=== PATIENT | female | born 1960 | race Caucasian/White ===

== ENCOUNTER 2018-02-25 16:42 | Inpatient (IN) ==
[2018-02-25] MEDS ORDERED: NITROGLYCERIN 2% OINT 1 INCH/GM PACK TOP STA (17:10)
[2018-02-25] MEDS ORDERED: MORPHINE 4 MG/1 ML VIAL IV STA (17:10)
[2018-02-25 17:30] LABS: Basophils % 0.3 % (0.0-0.8); Eosinophils # 0.2 10*3/uL (0.0-0.87); Eosinophils % 1.5 % (0.00-10.9); Hematocrit 39.5 VOL% (35.7-47.0); Hemoglobin 13.1 GM/DL (12.0-16.0); Immature Granulocytes % 0.4 %; Immature Granulocytes Absolute 0.05 #; Lymphocytes # 2.5 10*3/uL (1.4-4.0); Lymphocytes % 21.5 % (21.3-54.2); Mean Corpuscular HGB Conc 33.2 GM/DL (32-36); Mean Corpuscular Hemoglobin 32 PG (27-34); Mean Corpuscular Volume 95.6 FL (87-102); Mean Platelet Volume 11.4 FL (9.6-12.0); Monocytes # 0.8 10*3/uL (0.11-0.8); Monocytes % 6.6 % (1.7-12.7); Neutrophils % 69.7 % (38.7-73.9); Platelet Count 235 T/CUMM (130-400); Red Blood Count 4.13 MC/CUMM (3.8-5.5); White Blood Count 11.5 T/CUMM (4-12)
[2018-02-25 17:46] LABS: INR 0.9; Partial Thromboplastin Time 28.7 SECS (0-40)
[2018-02-25 17:49] LABS: Lactic Acid 2.8 MMOL/L (0.4-2.0)
[2018-02-25 17:50] LABS: Albumin 2.8 G/DL (3.4-5.0); Bilirubin,Total 0.6 MG/DL (0.2-1.0); Potassium 3.8 MMOL/L (3.5-5.1); Total Protein 7.5 G/DL (6.4-8.3)
[2018-02-25 17:52] LABS: Troponin I Only < 0.015 NG/ML (0.00-0.045)
[2018-02-25] MEDS ORDERED: LORazepam 2 MG/1 ML VIAL ONE (19:01)
[2018-02-25] MEDS ORDERED: ALBUTEROL 2.5 MG/3 ML NEB RESP TX PRN (19:02)
[2018-02-25] MEDS ORDERED: ZALEPLON 5 MG CAPSULE PO PRN (19:02)
[2018-02-25] MEDS ORDERED: ONDANSETRON 4 MG/2 ML VIAL IV PRN (19:02)
[2018-02-25] MEDS ORDERED: hydrALAZINE 20 MG/1 ML VIAL IV PRN (19:10)
[2018-02-25] MEDS ORDERED: methylPREDNISolone SOD SUC 125 MG/2 ML VIAL ONE (19:13)
[2018-02-25] MEDS ORDERED: POTASSIUM CHLORIDE RIDER 10 MEQ in PREMIX 1 EACH IV PRN (19:15)
[2018-02-25] MEDS ORDERED: diphenhydrAMINE 50 MG/1 ML VIAL IV STA (19:15)
[2018-02-25] MEDS ORDERED: MAGNESIUM SULF RIDER 2 GM in PREMIX 1 EACH IV PRN (19:15)
[2018-02-25] MEDS ORDERED: methylPREDNISolone SOD SUC 125 MG/2 ML VIAL IV STA (19:15)
[2018-02-25] MEDS ORDERED: ETOMIDATE 20 MG/10 ML VIAL IV ONE ×2 (19:17→19:19)
[2018-02-25] MEDS ORDERED: ROCURONIUM 100 MG/10 ML VIAL IV ONE (19:18)
[2018-02-25] MEDS ORDERED: SODIUM CHLORIDE 0.45% 1,000 ML IV SCH (19:30)
[2018-02-25] MEDS ORDERED: EPINEPHrine 1 MG/10 ML SYRINGE ONE (19:35)
[2018-02-25] MEDS ORDERED: ATROPINE 1 MG/10 ML SYRINGE ONE (19:35)
[2018-02-25] MEDS ORDERED: MIDAZOLAM 2 MG/2 ML VIAL ONE (19:46)
[2018-02-25] MEDS ORDERED: fentaNYL 100 MCG/2 ML VIAL ONE (19:47)
[2018-02-25] MEDS ORDERED: diphenhydrAMINE 50 MG/1 ML VIAL ONE (19:49)
[2018-02-25] MEDS ORDERED: HEPARIN/NACL 0.9% 2 UNITS/ML 0 ML IV ONE (19:57)
[2018-02-25 20:04] LABS: ABG Base Excess -3.9 MMOL/L (-2.5-2.5); ABG Oxygen Saturation 84.5 % (95-100); ABG PCO2 49.1 MM HG (35-48); ABG PH 7.289 (7.35-7.45); ABG PO2 60.3 MM HG (80-95); ABG TCO2 24.5 MMOL/L (23-27); Glucose Heart Surgery 318 MG/DL (74-106); Hemoglobin Heart Surgery 13.3 G/DL (12.0-16.0); Potassium Heart/CVR 3.7 MMOL/L (3.5-5.1)
[2018-02-25] MEDS: PROPOFOL 1,000 MG/100 ML BOTTLE IV SCH (21:08)
[2018-02-25] MEDS ORDERED: PROPOFOL 1,000 MG/100 ML BOTTLE IV ONE (21:08)
[2018-02-25] MEDS ORDERED: FUROSEMIDE 40 MG/4 ML VIAL IV ONE (21:14)
[2018-02-25] MEDS ORDERED: MAGNESIUM GLUCONATE 200 MG/ML 30 ML/BOTTLE PO ONE (21:30)
[2018-02-25] MEDS ORDERED: PANTOPRAZOLE INJ 80 MG in SODIUM CHLORIDE 0.9% 100 ML IV ONE (22:00)
[2018-02-25 22:02] LABS: Lactic Acid 3.1 MMOL/L (0.4-2.0)
[2018-02-25 22:19] LABS: ABG Base Excess 0.6 MMOL/L (-2.5-2.5); ABG HCO3 26.1 MMOL/L (20-26); ABG Oxygen Saturation 96.6 % (95-100); ABG PCO2 45.5 MM HG (35-48); ABG PH 7.377 (7.35-7.45); ABG PO2 101.3 MM HG (80-95); ABG TCO2 27.5 MMOL/L (23-27)
[2018-02-25] MEDS: diphenhydrAMINE 50 MG/1 ML VIAL IV SCH (22:31)
[2018-02-25] MEDS: DOCUSATE SODIUM 100 MG CAPSULE PO SCH (22:31)
[2018-02-25] MEDS: APIXABAN 5 MG TABLET PO SCH (22:31)
[2018-02-25] MEDS: diphenhydrAMINE CAP 25 MG CAPSULE PO SCH (22:31)
[2018-02-25] MEDS: POTASSIUM CHLORIDE 20 MEQ/15 ML UDCUP PO SCH (22:32)
[2018-02-25] MEDS: GABAPENTIN 300 MG CAPSULE PO SCH (22:32)
[2018-02-25] MEDS: METOPROLOL TARTRATE 25 MG TABLET PO SCH (22:32)
[2018-02-25] MEDS: POLYCARBOPHIL 625 MG TABLET PO SCH (22:32)
[2018-02-25] MEDS: methylPREDNISolone SOD SUC 125 MG/2 ML VIAL IV SCH (22:34)
[2018-02-25 22:40] LABS: Apearance,Urine CLEAR (Clear); Bilirubin,Urine Negative (Negative); Blood, Urine Small mg/dL (Negative); Glucose,Urine (UA) 150 mg/dL (Negative); Ketones,Urine Negative (Negative); Nitrite,Urine Negative (Negative); Protein,Urine 100 MG/DL; RBC,Urine 12 /HPF (0-4); Urine Color Yellow (Yellow); Urine Specific Gravity > 1.060 (1.001-1.035); Urine Urobilinogen < 2.0 EU/DL (0.2-1.0); WBC,Urine 2 /HPF (0-6)
[2018-02-26 02:15] LABS: Lactic Acid 2.1 MMOL/L (0.4-2.0)
[2018-02-26] MEDS: PROPOFOL 1,000 MG/100 ML BOTTLE IV SCH ×5 (02:48→19:41)
[2018-02-26 03:15] LABS: ABG Base Excess 1.8 MMOL/L (-2.5-2.5); ABG HCO3 27.5 MMOL/L (20-26); ABG PCO2 48.3 MM HG (35-48); ABG PH 7.374 (7.35-7.45); ABG PO2 183.6 MM HG (80-95)
[2018-02-26 03:16] LABS: Basophils % 0.2 % (0.0-0.8); Hematocrit 33.7 VOL% (35.7-47.0); Hemoglobin 11.1 GM/DL (12.0-16.0); Immature Granulocytes % 0.8 %; Immature Granulocytes Absolute 0.09 #; Lymphocytes # 0.5 10*3/uL (1.4-4.0); Lymphocytes % 4.2 % (21.3-54.2); Mean Corpuscular HGB Conc 32.9 GM/DL (32-36); Mean Corpuscular Hemoglobin 32 PG (27-34); Mean Corpuscular Volume 96.8 FL (87-102); Mean Platelet Volume 11.6 FL (9.6-12.0); Monocytes # 0.3 10*3/uL (0.11-0.8); Monocytes % 2.1 % (1.7-12.7); Neutrophils # 11.1 10*3/uL (1.4-7.4); Neutrophils % 92.7 % (38.7-73.9); Platelet Count 186 T/CUMM (130-400); Red Blood Count 3.48 MC/CUMM (3.8-5.5)
[2018-02-26 03:35] LABS: Band Neutrophils 24 % (0-10); Lymphocytes 2 % (20-55); Segmented Neutrophils 74 % (50-85); Total Cells Counted 100
[2018-02-26 03:49] LABS: Osmolality,Calculated 285.8 MOS/KG (273-304); Potassium 4.6 MMOL/L (3.5-5.1)
[2018-02-26] MEDS: methylPREDNISolone SOD SUC 125 MG/2 ML VIAL IV SCH ×3 (04:03→15:21)
[2018-02-26 06:12] LABS: Lactic Acid 2.3 MMOL/L (0.4-2.0)
[2018-02-26] MEDS: diphenhydrAMINE 50 MG/1 ML VIAL IV SCH ×4 (06:20→18:08)
[2018-02-26] MEDS: LEVOTHYROXINE 175 MCG TABLET PO SCH (06:20)
[2018-02-26 08:45] LABS: ABG Base Excess 1.1 MMOL/L (-2.5-2.5); ABG HCO3 25.4 MMOL/L (20-26); ABG Oxygen Saturation 96.7 % (95-100); ABG PCO2 46.8 MM HG (35-48); ABG PH 7.367 (7.35-7.45); ABG PO2 92.2 MM HG (80-95); ABG TCO2 24.4 MMOL/L (23-27)
[2018-02-26] MEDS ORDERED: METOPROLOL SUCCINATE XL 50 MG TABLET PO SCH (09:00)
[2018-02-26] MEDS: POTASSIUM CHLORIDE 20 MEQ/15 ML UDCUP PO SCH ×2 (10:12→23:25)
[2018-02-26] MEDS: FUROSEMIDE 40 MG/4 ML VIAL IV SCH ×2 (10:12→15:21)
[2018-02-26] MEDS: METOPROLOL TARTRATE 25 MG TABLET PO SCH ×2 (10:12→23:25)
[2018-02-26] MEDS: APIXABAN 5 MG TABLET PO SCH ×2 (10:13→23:24)
[2018-02-26] MEDS: amLODIPine 10 MG TABLET PO SCH (10:13)
[2018-02-26] MEDS: LANSOPRAZOLE ODT 30 MG TABLET PER TUBE SCH (10:13)
[2018-02-26] MEDS: FLUoxetine 20 MG CAPSULE PO SCH (10:13)
[2018-02-26] MEDS: PRAVASTATIN 40 MG TABLET PO SCH (10:13)
[2018-02-26] MEDS: GABAPENTIN 300 MG CAPSULE PO SCH ×3 (10:13→23:25)
[2018-02-26] MEDS: POLYCARBOPHIL 625 MG TABLET PO SCH ×3 (10:13→23:25)
[2018-02-26] MEDS: DOCUSATE SODIUM 100 MG CAPSULE PO SCH (10:15)
[2018-02-26] MEDS: OMEGA 3 ACID ETHYL ESTERS 1 GM CAPSULE PO SCH (10:15)
[2018-02-26] MEDS ORDERED: MAGNESIUM SULF RIDER 4 GM in PREMIX 1 EACH IV PRN (11:51)
[2018-02-26 13:07] LABS: Calcium 8.2 MG/DL (8.5-10.1); Potassium 4.1 MMOL/L (3.5-5.1)
[2018-02-26] MEDS ORDERED: FLUoxetine 20 MG CAPSULE PO SCH (21:00)
[2018-02-26] MEDS: LISINOPRIL 20 MG TABLET PO SCH (23:24)
[2018-02-26] MEDS: diphenhydrAMINE CAP 25 MG CAPSULE PO SCH (23:25)
[2018-02-27] MEDS: PROPOFOL 1,000 MG/100 ML BOTTLE IV SCH ×4 (00:32→23:51)
[2018-02-27] MEDS: DOCUSATE SODIUM 100 MG CAPSULE PO SCH ×3 (05:13→20:30)
[2018-02-27 05:47] LABS: ABG Base Excess 4.8 MMOL/L (-2.5-2.5); ABG HCO3 28.8 MMOL/L (20-26); ABG Oxygen Saturation 99.3 % (95-100); ABG PCO2 46.9 MM HG (35-48); ABG PH 7.416 (7.35-7.45); ABG TCO2 27.1 MMOL/L (23-27)
[2018-02-27 05:50] LABS: Basophils % 0.1 % (0.0-0.8); Hematocrit 31.8 VOL% (35.7-47.0); Hemoglobin 10.5 GM/DL (12.0-16.0); Immature Granulocytes % 1.3 %; Immature Granulocytes Absolute 0.17 #; Lymphocytes # 0.7 10*3/uL (1.4-4.0); Lymphocytes % 5.5 % (21.3-54.2); Mean Corpuscular Hemoglobin 32 PG (27-34); Mean Corpuscular Volume 95.8 FL (87-102); Mean Platelet Volume 11.7 FL (9.6-12.0); Monocytes # 0.5 10*3/uL (0.11-0.8); Monocytes % 4.2 % (1.7-12.7); Neutrophils # 11.2 10*3/uL (1.4-7.4); Neutrophils % 88.9 % (38.7-73.9); Platelet Count 178 T/CUMM (130-400); Red Blood Count 3.32 MC/CUMM (3.8-5.5); Red Cell Distribution Width 12.8 % (9.3-17.3); White Blood Count 12.6 T/CUMM (4-12)
[2018-02-27 05:52] LABS: Total Cells Counted 0
[2018-02-27] MEDS: LEVOTHYROXINE 175 MCG TABLET PO SCH (05:54)
[2018-02-27 06:04] LABS: Calcium 8.8 MG/DL (8.5-10.1); Osmolality,Calculated 288.7 MOS/KG (273-304); Potassium 3.9 MMOL/L (3.5-5.1)
[2018-02-27] MEDS ORDERED: ATROPINE 1 MG/10 ML SYRINGE ONE (06:38)
[2018-02-27] MEDS ORDERED: GLUCAGON 1 MG VIAL IM PRN (07:27)
[2018-02-27] MEDS ORDERED: DEXTROSE 50% 25 GM/50 ML VIAL IV PRN (07:27)
[2018-02-27] MEDS: GABAPENTIN 300 MG CAPSULE PO SCH ×3 (09:27→20:31)
[2018-02-27] MEDS: METOPROLOL TARTRATE 25 MG TABLET PO SCH ×2 (09:27→20:30)
[2018-02-27] MEDS: POLYCARBOPHIL 625 MG TABLET PO SCH ×3 (09:27→20:30)
[2018-02-27] MEDS: LANSOPRAZOLE ODT 30 MG TABLET PER TUBE SCH (09:27)
[2018-02-27] MEDS: amLODIPine 10 MG TABLET PO SCH (09:27)
[2018-02-27] MEDS: POTASSIUM CHLORIDE 20 MEQ/15 ML UDCUP PO SCH ×2 (09:27→20:31)
[2018-02-27] MEDS: MULTIVITAMIN (BEROCCA) TABLET PO SCH (09:27)
[2018-02-27] MEDS: OMEGA 3 ACID ETHYL ESTERS 1 GM CAPSULE PO SCH (09:27)
[2018-02-27] MEDS: PRAVASTATIN 40 MG TABLET PO SCH (09:27)
[2018-02-27] MEDS: FUROSEMIDE 40 MG/4 ML VIAL IV SCH ×2 (09:28→16:30)
[2018-02-27] MEDS: APIXABAN 5 MG TABLET PO SCH ×2 (09:28→20:30)
[2018-02-27] MEDS: FLUoxetine 20 MG CAPSULE PO SCH ×2 (09:28→20:31)
[2018-02-27] MEDS: INSULIN REGULAR 100 UNIT/ML SUBCUT SCH ×2 (13:16→17:35)
[2018-02-27] MEDS: diphenhydrAMINE CAP 25 MG CAPSULE PO SCH (20:30)
[2018-02-27] MEDS: LISINOPRIL 20 MG TABLET PO SCH (20:31)
[2018-02-28] MEDS: INSULIN REGULAR 100 UNIT/ML SUBCUT SCH ×4 (00:59→18:40)
[2018-02-28] MEDS: MORPHINE 4 MG/1 ML VIAL IV PRN ×3 (02:32→13:19)
[2018-02-28 04:28] LABS: ABG Base Excess 7.4 MMOL/L (-2.5-2.5); ABG HCO3 31.2 MMOL/L (20-26); ABG Oxygen Saturation 96.9 % (95-100); ABG PCO2 47.5 MM HG (35-48); ABG PH 7.446 (7.35-7.45); ABG PO2 88.6 MM HG (80-95); ABG TCO2 28.8 MMOL/L (23-27); Allen Test Positive; Pt O2 Delivery Device BIPAP
[2018-02-28 06:04] LABS: Basophils % 0.1 % (0.0-0.8); Eosinophils % 0.2 % (0.00-10.9); Hematocrit 34.7 VOL% (35.7-47.0); Hemoglobin 11.5 GM/DL (12.0-16.0); Immature Granulocytes % 1.3 %; Immature Granulocytes Absolute 0.15 #; Lymphocytes # 2.3 10*3/uL (1.4-4.0); Lymphocytes % 19.2 % (21.3-54.2); Mean Corpuscular HGB Conc 33.1 GM/DL (32-36); Mean Corpuscular Hemoglobin 32 PG (27-34); Mean Corpuscular Volume 97.5 FL (87-102); Mean Platelet Volume 12.1 FL (9.6-12.0); Monocytes # 0.7 10*3/uL (0.11-0.8); Monocytes % 6.2 % (1.7-12.7); Neutrophils # 8.7 10*3/uL (1.4-7.4); Platelet Count 195 T/CUMM (130-400); Red Blood Count 3.56 MC/CUMM (3.8-5.5)
[2018-02-28] MEDS: LEVOTHYROXINE 175 MCG TABLET PO SCH (06:07)
[2018-02-28] MEDS: FUROSEMIDE 40 MG/4 ML VIAL IV SCH (08:12)
[2018-02-28] MEDS: PROPOFOL 1,000 MG/100 ML BOTTLE IV SCH ×3 (08:58→23:10)
[2018-02-28] MEDS ORDERED: SUCCINYLCHOLINE 200 MG/10 ML VIAL ONE (09:08)
[2018-02-28] MEDS ORDERED: ETOMIDATE 40 MG/20 ML VIAL IV ONE (09:08)
[2018-02-28 09:29] LABS: ABG Base Excess 5.4 MMOL/L (-2.5-2.5); ABG HCO3 29.1 MMOL/L (20-26); ABG Oxygen Saturation 90.7 % (95-100); ABG PCO2 49.9 MM HG (35-48); ABG PH 7.405 (7.35-7.45); ABG PO2 64.4 MM HG (80-95); ABG TCO2 27.6 MMOL/L (23-27)
[2018-02-28] MEDS: PHENYLEPHRINE DRIP 40 MG/250 ML PREMIX IV PRN (09:46)
[2018-02-28 11:20] LABS: Calcium 8.7 MG/DL (8.5-10.1); Osmolality,Calculated 293.3 MOS/KG (273-304); Potassium 3.8 MMOL/L (3.5-5.1)
[2018-02-28] MEDS ORDERED: FUROSEMIDE INJ 100 MG in SODIUM CHLORIDE 0.9% 90 ML IV SCH (12:00)
[2018-02-28] MEDS: METOPROLOL TARTRATE 25 MG TABLET PO SCH ×2 (12:31→23:10)
[2018-02-28] MEDS: POTASSIUM CHLORIDE 20 MEQ/15 ML UDCUP PO SCH ×2 (12:48→21:04)
[2018-02-28] MEDS: GABAPENTIN 300 MG CAPSULE PO SCH ×3 (12:49→21:06)
[2018-02-28] MEDS: DOCUSATE SODIUM 100 MG/10 ML UDCUP PO SCH ×2 (12:49→21:06)
[2018-02-28] MEDS: OMEGA 3 ACID ETHYL ESTERS 1 GM CAPSULE PO SCH (12:49)
[2018-02-28] MEDS: MULTIVITAMIN (BEROCCA) TABLET PO SCH (12:49)
[2018-02-28] MEDS: FLUoxetine 20 MG CAPSULE PO SCH ×2 (12:50→21:04)
[2018-02-28] MEDS: PRAVASTATIN 40 MG TABLET PO SCH (12:50)
[2018-02-28] MEDS: LANSOPRAZOLE ODT 30 MG TABLET PER TUBE SCH (12:50)
[2018-02-28] MEDS: APIXABAN 5 MG TABLET PO SCH ×2 (12:50→21:05)
[2018-02-28] MEDS: methylPREDNISolone SOD SUC 40 MG/1 ML VIAL IV SCH ×2 (12:50→21:04)
[2018-02-28] MEDS: POLYCARBOPHIL 625 MG TABLET PO SCH ×3 (12:59→21:05)
[2018-02-28] MEDS ORDERED: SODIUM CHLORIDE 0.9% 500 ML IV ONE (15:11)
[2018-02-28] MEDS: amLODIPine 10 MG TABLET PO SCH (16:45)
[2018-02-28] MEDS: DOCUSATE SODIUM 100 MG CAPSULE PO SCH (16:45)
[2018-02-28] MEDS: SODIUM CHLORIDE 0.9% 1,000 ML IV SCH (20:19)
[2018-02-28] MEDS: diphenhydrAMINE CAP 25 MG CAPSULE PO SCH (21:06)
[2018-03-01] MEDS: PROPOFOL 1,000 MG/100 ML BOTTLE IV SCH ×4 (00:38→20:37)
[2018-03-01] MEDS: INSULIN REGULAR 100 UNIT/ML SUBCUT SCH ×4 (00:51→18:08)
[2018-03-01 03:44] LABS: ABG Base Excess 4.6 MMOL/L (-2.5-2.5); ABG HCO3 29.9 MMOL/L (20-26); ABG Oxygen Saturation 99.2 % (95-100); ABG PCO2 47.8 MM HG (35-48); ABG PH 7.414 (7.35-7.45); ABG PO2 260.9 MM HG (80-95); ABG TCO2 31.4 MMOL/L (23-27)
[2018-03-01 05:21] LABS: Calcium 8.1 MG/DL (8.5-10.1); Potassium 4.5 MMOL/L (3.5-5.1); Prealbumin 23.2 MG/DL (20-40)
[2018-03-01] MEDS: LEVOTHYROXINE 175 MCG TABLET PO SCH (06:17)
[2018-03-01 08:48] LABS: ABG Base Excess 3.7 MMOL/L (-2.5-2.5); ABG HCO3 27.7 MMOL/L (20-26); ABG Oxygen Saturation 95.8 % (95-100); ABG PCO2 46.9 MM HG (35-48); ABG PH 7.401 (7.35-7.45); ABG PO2 83.9 MM HG (80-95); ABG TCO2 26.4 MMOL/L (23-27)
[2018-03-01] MEDS: POTASSIUM CHLORIDE 20 MEQ/15 ML UDCUP PO SCH ×2 (09:33→20:58)
[2018-03-01] MEDS: PRAVASTATIN 40 MG TABLET PO SCH (09:34)
[2018-03-01] MEDS: POLYCARBOPHIL 625 MG TABLET PO SCH ×3 (09:34→20:39)
[2018-03-01] MEDS: MULTIVITAMIN (BEROCCA) TABLET PO SCH (09:34)
[2018-03-01] MEDS: APIXABAN 5 MG TABLET PO SCH ×2 (09:34→20:38)
[2018-03-01] MEDS: OMEGA 3 ACID ETHYL ESTERS 1 GM CAPSULE PO SCH (09:35)
[2018-03-01] MEDS: METOPROLOL TARTRATE 25 MG TABLET PO SCH ×2 (09:35→20:39)
[2018-03-01] MEDS: FLUoxetine 20 MG CAPSULE PO SCH ×2 (09:35→20:38)
[2018-03-01] MEDS: LANSOPRAZOLE ODT 30 MG TABLET PER TUBE SCH (09:35)
[2018-03-01] MEDS: DOCUSATE SODIUM 100 MG/10 ML UDCUP PO SCH ×2 (09:35→20:38)
[2018-03-01] MEDS: GABAPENTIN 300 MG CAPSULE PO SCH ×3 (09:37→20:39)
[2018-03-01] MEDS: SODIUM CHLORIDE 0.9% 1,000 ML IV SCH ×2 (09:40→22:37)
[2018-03-01] MEDS: methylPREDNISolone SOD SUC 40 MG/1 ML VIAL IV SCH ×2 (09:45→20:38)
[2018-03-01] MEDS: MORPHINE 4 MG/1 ML VIAL IV PRN (12:11)
[2018-03-01] MEDS: diphenhydrAMINE CAP 25 MG CAPSULE PO SCH (20:38)
[2018-03-02] MEDS: INSULIN REGULAR 100 UNIT/ML SUBCUT SCH ×5 (00:09→23:55)
[2018-03-02] MEDS: PROPOFOL 1,000 MG/100 ML BOTTLE IV SCH ×5 (01:56→23:29)
[2018-03-02 04:19] LABS: Basophils % 0.1 % (0.0-0.8); Hematocrit 30.9 VOL% (35.7-47.0); Hemoglobin 10.3 GM/DL (12.0-16.0); Immature Granulocytes % 1.6 %; Immature Granulocytes Absolute 0.19 #; Lymphocytes # 0.8 10*3/uL (1.4-4.0); Lymphocytes % 6.7 % (21.3-54.2); Mean Corpuscular HGB Conc 33.3 GM/DL (32-36); Mean Corpuscular Hemoglobin 32 PG (27-34); Mean Platelet Volume 12.6 FL (9.6-12.0); Monocytes # 0.6 10*3/uL (0.11-0.8); Monocytes % 5.2 % (1.7-12.7); Neutrophils % 86.4 % (38.7-73.9); Platelet Count 175 T/CUMM (130-400); Red Blood Count 3.22 MC/CUMM (3.8-5.5); Red Cell Distribution Width 12.7 % (9.3-17.3); White Blood Count 11.6 T/CUMM (4-12)
[2018-03-02] MEDS: LEVOTHYROXINE 175 MCG TABLET PO SCH (06:31)
[2018-03-02 08:17] LABS: Osmolality,Calculated 295.3 MOS/KG (273-304); Potassium 4.9 MMOL/L (3.5-5.1)
[2018-03-02 08:26] LABS: ABG Base Excess 3.4 MMOL/L (-2.5-2.5); ABG HCO3 27.3 MMOL/L (20-26); ABG Oxygen Saturation 92.1 % (95-100); ABG PCO2 43.8 MM HG (35-48); ABG PH 7.418 (7.35-7.45); ABG PO2 65.5 MM HG (80-95); ABG TCO2 25.6 MMOL/L (23-27)
[2018-03-02] MEDS: POLYETHYLENE GLYCOL POWDER 17 GM PACK PER TUBE SCH (09:49)
[2018-03-02] MEDS: DOCUSATE SODIUM 100 MG/10 ML UDCUP PO SCH ×2 (09:49→20:31)
[2018-03-02] MEDS: OMEGA 3 ACID ETHYL ESTERS 1 GM CAPSULE PO SCH (09:51)
[2018-03-02] MEDS: GABAPENTIN 300 MG CAPSULE PO SCH ×3 (09:52→20:32)
[2018-03-02] MEDS: LISINOPRIL 10 MG TABLET PO SCH (09:52)
[2018-03-02] MEDS: PRAVASTATIN 40 MG TABLET PO SCH (09:53)
[2018-03-02] MEDS: FLUoxetine 20 MG CAPSULE PO SCH ×2 (09:53→20:31)
[2018-03-02] MEDS: POLYCARBOPHIL 625 MG TABLET PO SCH ×3 (09:53→20:31)
[2018-03-02] MEDS: MULTIVITAMIN (BEROCCA) TABLET PO SCH (09:53)
[2018-03-02] MEDS: amLODIPine 5 MG TABLET PO SCH (09:53)
[2018-03-02] MEDS: POTASSIUM CHLORIDE 20 MEQ/15 ML UDCUP PO SCH ×2 (09:53→20:31)
[2018-03-02] MEDS: APIXABAN 5 MG TABLET PO SCH ×2 (09:53→20:32)
[2018-03-02] MEDS: LANSOPRAZOLE ODT 30 MG TABLET PER TUBE SCH (09:53)
[2018-03-02] MEDS: METOPROLOL TARTRATE 25 MG TABLET PO SCH ×2 (10:30→20:31)
[2018-03-02] MEDS ORDERED: METOPROLOL TARTRATE 5 MG/5 ML VIAL IV ONE ×3 (18:39→18:48)
[2018-03-02] MEDS: diphenhydrAMINE CAP 25 MG CAPSULE PO SCH (20:31)
[2018-03-03] MEDS: MORPHINE 4 MG/1 ML VIAL IV PRN (02:04)
[2018-03-03 03:47] LABS: Basophils % 0.2 % (0.0-0.8); Eosinophils # 0.1 10*3/uL (0.0-0.87); Eosinophils % 0.9 % (0.00-10.9); Hematocrit 29.5 VOL% (35.7-47.0); Immature Granulocytes % 2.1 %; Immature Granulocytes Absolute 0.22 #; Lymphocytes # 1.6 10*3/uL (1.4-4.0); Mean Corpuscular HGB Conc 33.9 GM/DL (32-36); Mean Corpuscular Hemoglobin 32 PG (27-34); Mean Corpuscular Volume 94.2 FL (87-102); Mean Platelet Volume 12.5 FL (9.6-12.0); Monocytes # 0.9 10*3/uL (0.11-0.8); Monocytes % 8.2 % (1.7-12.7); NRBC # 0.02 10*3/uL; Neutrophils # 7.8 10*3/uL (1.4-7.4); Neutrophils % 73.6 % (38.7-73.9); Platelet Count 187 T/CUMM (130-400); Red Blood Count 3.13 MC/CUMM (3.8-5.5); Red Cell Distribution Width 13.1 % (9.3-17.3); White Blood Count 10.7 T/CUMM (4-12)
[2018-03-03] MEDS: PROPOFOL 1,000 MG/100 ML BOTTLE IV SCH ×6 (04:12→21:36)
[2018-03-03 04:14] LABS: Osmolality,Calculated 284.5 MOS/KG (273-304); Potassium 4.3 MMOL/L (3.5-5.1)
[2018-03-03 04:23] LABS: ABG Base Excess 5.1 MMOL/L (-2.5-2.5); ABG Oxygen Saturation 97.4 % (95-100); ABG PCO2 45.1 MM HG (35-48); ABG PH 7.432 (7.35-7.45); ABG PO2 94.5 MM HG (80-95); ABG TCO2 27.3 MMOL/L (23-27); Allen Test Positive; Pt O2 Delivery Device Ventilator
[2018-03-03] MEDS: LEVOTHYROXINE 175 MCG TABLET PO SCH (06:15)
[2018-03-03] MEDS: INSULIN REGULAR 100 UNIT/ML SUBCUT SCH ×3 (06:15→18:08)
[2018-03-03 07:54] LABS: ABG Base Excess 5.1 MMOL/L (-2.5-2.5); ABG Oxygen Saturation 97.6 % (95-100); ABG PCO2 42.1 MM HG (35-48); ABG PH 7.454 (7.35-7.45); ABG PO2 95.7 MM HG (80-95); ABG TCO2 26.6 MMOL/L (23-27); Allen Test Positive; Pt O2 Delivery Device Ventilator
[2018-03-03] MEDS: POLYETHYLENE GLYCOL POWDER 17 GM PACK PER TUBE SCH (09:21)
[2018-03-03] MEDS: POTASSIUM CHLORIDE 20 MEQ/15 ML UDCUP PO SCH ×2 (09:22→21:04)
[2018-03-03] MEDS: DOCUSATE SODIUM 100 MG/10 ML UDCUP PO SCH ×2 (09:22→21:05)
[2018-03-03] MEDS: FLUoxetine 20 MG CAPSULE PO SCH ×2 (09:27→21:03)
[2018-03-03] MEDS: LISINOPRIL 10 MG TABLET PO SCH (09:27)
[2018-03-03] MEDS: OMEGA 3 ACID ETHYL ESTERS 1 GM CAPSULE PO SCH (09:27)
[2018-03-03] MEDS: METOPROLOL TARTRATE 25 MG TABLET PO SCH ×2 (09:27→21:39)
[2018-03-03] MEDS: MULTIVITAMIN (BEROCCA) TABLET PO SCH (09:27)
[2018-03-03] MEDS ORDERED: METOPROLOL TARTRATE 25 MG TABLET PO ONE (09:28)
[2018-03-03] MEDS: APIXABAN 5 MG TABLET PO SCH ×2 (09:28→21:04)
[2018-03-03] MEDS: POLYCARBOPHIL 625 MG TABLET PO SCH ×3 (09:28→21:03)
[2018-03-03] MEDS: PRAVASTATIN 40 MG TABLET PO SCH (09:28)
[2018-03-03] MEDS: GABAPENTIN 300 MG CAPSULE PO SCH ×3 (09:28→21:04)
[2018-03-03] MEDS: amLODIPine 5 MG TABLET PO SCH (09:28)
[2018-03-03] MEDS: LANSOPRAZOLE ODT 30 MG TABLET PER TUBE SCH (09:29)
[2018-03-03] MEDS: FUROSEMIDE 40 MG/4 ML VIAL IV SCH (09:30)
[2018-03-03] MEDS: MAGNESIUM SULF RIDER 2 GM in PREMIX 1 EACH IV PRN (09:45)
[2018-03-03] MEDS: DILTIAZEM 30 MG TABLET PO SCH ×3 (12:15→21:04)
[2018-03-03] MEDS: ACETAMINOPHEN 325 MG TABLET PO PRN (18:07)
[2018-03-03] MEDS: METOPROLOL TARTRATE 50 MG TABLET PO SCH (21:04)
[2018-03-03] MEDS: diphenhydrAMINE CAP 25 MG CAPSULE PO SCH (21:05)
[2018-03-04] MEDS: ACETAMINOPHEN 325 MG TABLET PO PRN (00:15)
[2018-03-04] MEDS: INSULIN REGULAR 100 UNIT/ML SUBCUT SCH ×4 (00:26→18:30)
[2018-03-04] MEDS: PROPOFOL 1,000 MG/100 ML BOTTLE IV SCH ×6 (01:30→22:20)
[2018-03-04 03:21] LABS: ABG Base Excess 6.9 MMOL/L (-2.5-2.5); ABG HCO3 30.7 MMOL/L (20-26); ABG Oxygen Saturation 97.2 % (95-100); ABG PCO2 44.6 MM HG (35-48); ABG PH 7.459 (7.35-7.45); ABG TCO2 28.5 MMOL/L (23-27); Allen Test Positive; Pt O2 Delivery Device Ventilator
[2018-03-04 04:25] LABS: Basophils % 0.3 % (0.0-0.8); Eosinophils # 0.2 10*3/uL (0.0-0.87); Eosinophils % 1.4 % (0.00-10.9); Hematocrit 30.4 VOL% (35.7-47.0); Hemoglobin 10.2 GM/DL (12.0-16.0); Immature Granulocytes % 4.6 %; Lymphocytes # 1.3 10*3/uL (1.4-4.0); Lymphocytes % 12.4 % (21.3-54.2); Mean Corpuscular HGB Conc 33.6 GM/DL (32-36); Mean Corpuscular Hemoglobin 31 PG (27-34); Mean Corpuscular Volume 93.3 FL (87-102); Mean Platelet Volume 12.7 FL (9.6-12.0); Monocytes # 0.8 10*3/uL (0.11-0.8); Neutrophils # 8.1 10*3/uL (1.4-7.4); Neutrophils % 74.3 % (38.7-73.9); Platelet Count 177 T/CUMM (130-400); Red Blood Count 3.26 MC/CUMM (3.8-5.5); White Blood Count 10.8 T/CUMM (4-12)
[2018-03-04 04:39] LABS: Calcium 8.7 MG/DL (8.5-10.1); Potassium 4.4 MMOL/L (3.5-5.1)
[2018-03-04] MEDS: MORPHINE 4 MG/1 ML VIAL IV PRN (05:46)
[2018-03-04] MEDS: MAGNESIUM SULF RIDER 2 GM in PREMIX 1 EACH IV PRN (05:46)
[2018-03-04] MEDS: LEVOTHYROXINE 175 MCG TABLET PO SCH (06:02)
[2018-03-04] MEDS ORDERED: MIDAZOLAM 2 MG/2 ML VIAL IV ONE (07:31)
[2018-03-04] MEDS ORDERED: LIDOCAINE 1% 20 ML VIAL MISC INJ ONE (07:31)
[2018-03-04] MEDS: CLINDAMYCIN INJ 600 MG in PREMIX 1 EACH IV SCH ×2 (09:41→15:20)
[2018-03-04 10:18] LABS: ABG Base Excess 5.6 MMOL/L (-2.5-2.5); ABG HCO3 29.4 MMOL/L (20-26); ABG Oxygen Saturation 95.6 % (95-100); ABG PCO2 46.2 MM HG (35-48); ABG TCO2 27.9 MMOL/L (23-27); Allen Test Positive; Pt O2 Delivery Device Ventilator
[2018-03-04] MEDS: CEFEPIME 1,000 MG in SYRINGE 1 EACH IV SCH ×2 (10:22→21:14)
[2018-03-04] MEDS: FUROSEMIDE 40 MG/4 ML VIAL IV SCH (10:22)
[2018-03-04] MEDS: methylPREDNISolone SOD SUC 40 MG/1 ML VIAL IV SCH ×2 (10:22→21:14)
[2018-03-04] MEDS: DOCUSATE SODIUM 100 MG/10 ML UDCUP PO SCH ×2 (10:23→21:14)
[2018-03-04] MEDS: POTASSIUM CHLORIDE 20 MEQ/15 ML UDCUP PO SCH ×2 (10:23→21:14)
[2018-03-04] MEDS: GABAPENTIN 300 MG CAPSULE PO SCH ×3 (10:23→21:16)
[2018-03-04] MEDS: MULTIVITAMIN (BEROCCA) TABLET PO SCH (10:24)
[2018-03-04] MEDS: APIXABAN 5 MG TABLET PO SCH ×2 (10:24→21:15)
[2018-03-04] MEDS: DILTIAZEM 30 MG TABLET PO SCH ×4 (10:24→21:15)
[2018-03-04] MEDS: OMEGA 3 ACID ETHYL ESTERS 1 GM CAPSULE PO SCH (10:24)
[2018-03-04] MEDS: POLYCARBOPHIL 625 MG TABLET PO SCH ×3 (10:24→21:15)
[2018-03-04] MEDS: METOPROLOL TARTRATE 50 MG TABLET PO SCH ×2 (10:25→21:15)
[2018-03-04] MEDS: PRAVASTATIN 40 MG TABLET PO SCH (10:25)
[2018-03-04] MEDS: FLUoxetine 20 MG CAPSULE PO SCH ×2 (10:25→21:15)
[2018-03-04] MEDS: LANSOPRAZOLE ODT 30 MG TABLET PER TUBE SCH (10:25)
[2018-03-04] MEDS: POLYETHYLENE GLYCOL POWDER 17 GM PACK PER TUBE SCH (10:27)
[2018-03-04] MEDS: amLODIPine 5 MG TABLET PO SCH (15:21)
[2018-03-04] MEDS: LISINOPRIL 10 MG TABLET PO SCH (15:21)
[2018-03-04] MEDS: METOPROLOL TARTRATE 25 MG TABLET PO SCH (15:26)
[2018-03-04] MEDS: diphenhydrAMINE CAP 25 MG CAPSULE PO SCH (21:15)
[2018-03-05] MEDS: CLINDAMYCIN INJ 600 MG in PREMIX 1 EACH IV SCH ×4 (00:15→23:57)
[2018-03-05] MEDS: INSULIN REGULAR 100 UNIT/ML SUBCUT SCH ×5 (00:15→23:57)
[2018-03-05] MEDS: PROPOFOL 1,000 MG/100 ML BOTTLE IV SCH ×6 (02:38→20:43)
[2018-03-05 03:41] LABS: ABG Base Excess 5.4 MMOL/L (-2.5-2.5); ABG HCO3 30.5 MMOL/L (20-26); ABG Oxygen Saturation 97.7 % (95-100); ABG PCO2 47.7 MM HG (35-48); ABG PH 7.424 (7.35-7.45); ABG PO2 110.9 MM HG (80-95); Allen Test Positive; Pt O2 Delivery Device Ventilator
[2018-03-05 05:21] LABS: Basophils % 0.3 % (0.0-0.8); Eosinophils % 0.1 % (0.00-10.9); Hematocrit 33.5 VOL% (35.7-47.0); Hemoglobin 11.2 GM/DL (12.0-16.0); Immature Granulocytes % 4.4 %; Immature Granulocytes Absolute 0.58 #; Lymphocytes # 0.7 10*3/uL (1.4-4.0); Lymphocytes % 5.2 % (21.3-54.2); Mean Corpuscular HGB Conc 33.4 GM/DL (32-36); Mean Corpuscular Hemoglobin 31 PG (27-34); Mean Corpuscular Volume 93.6 FL (87-102); Mean Platelet Volume 12.5 FL (9.6-12.0); Monocytes # 0.4 10*3/uL (0.11-0.8); Monocytes % 2.9 % (1.7-12.7); Neutrophils # 11.6 10*3/uL (1.4-7.4); Neutrophils % 87.1 % (38.7-73.9); Platelet Count 197 T/CUMM (130-400); Red Blood Count 3.58 MC/CUMM (3.8-5.5); Red Cell Distribution Width 12.6 % (9.3-17.3); White Blood Count 13.3 T/CUMM (4-12)
[2018-03-05 05:55] LABS: Osmolality,Calculated 292.4 MOS/KG (273-304); Potassium 5.1 MMOL/L (3.5-5.1)
[2018-03-05] MEDS: LEVOTHYROXINE 175 MCG TABLET PO SCH (06:16)
[2018-03-05 06:45] LABS: Band Neutrophils 6 % (0-10); Lymphocytes 11 % (20-55); Nucleated Red Blood Cells 1 (0-5); Platelet Estimate Normal; Segmented Neutrophils 81 % (50-85); Total Cells Counted 100
[2018-03-05 08:17] LABS: ABG Base Excess 4.5 MMOL/L (-2.5-2.5); ABG HCO3 28.5 MMOL/L (20-26); ABG Oxygen Saturation 98.8 % (95-100); ABG PCO2 47.7 MM HG (35-48); ABG PH 7.408 (7.35-7.45)
[2018-03-05] MEDS: POLYETHYLENE GLYCOL POWDER 17 GM PACK PER TUBE SCH (08:53)
[2018-03-05] MEDS: DOCUSATE SODIUM 100 MG/10 ML UDCUP PO SCH ×2 (08:53→20:34)
[2018-03-05] MEDS: MULTIVITAMIN (BEROCCA) TABLET PO SCH (08:59)
[2018-03-05] MEDS: DILTIAZEM 30 MG TABLET PO SCH ×4 (08:59→20:12)
[2018-03-05] MEDS: FLUoxetine 20 MG CAPSULE PO SCH ×2 (09:00→20:34)
[2018-03-05] MEDS: POLYCARBOPHIL 625 MG TABLET PO SCH ×3 (09:00→20:35)
[2018-03-05] MEDS: LISINOPRIL 10 MG TABLET PO SCH (09:00)
[2018-03-05] MEDS: LANSOPRAZOLE ODT 30 MG TABLET PER TUBE SCH (09:01)
[2018-03-05] MEDS: PRAVASTATIN 40 MG TABLET PO SCH (09:01)
[2018-03-05] MEDS: APIXABAN 5 MG TABLET PO SCH ×2 (09:01→20:34)
[2018-03-05] MEDS: GABAPENTIN 300 MG CAPSULE PO SCH ×3 (09:01→20:35)
[2018-03-05] MEDS: OMEGA 3 ACID ETHYL ESTERS 1 GM CAPSULE PO SCH (09:01)
[2018-03-05] MEDS: amLODIPine 5 MG TABLET PO SCH (09:01)
[2018-03-05] MEDS: METOPROLOL TARTRATE 50 MG TABLET PO SCH ×2 (09:01→20:34)
[2018-03-05] MEDS: CEFEPIME 1,000 MG in SYRINGE 1 EACH IV SCH ×2 (09:03→20:33)
[2018-03-05] MEDS: FUROSEMIDE 40 MG/4 ML VIAL IV SCH (09:06)
[2018-03-05] MEDS: methylPREDNISolone SOD SUC 40 MG/1 ML VIAL IV SCH ×2 (09:13→20:33)
[2018-03-05] MEDS: diphenhydrAMINE CAP 25 MG CAPSULE PO SCH (20:40)
[2018-03-06] MEDS: PROPOFOL 1,000 MG/100 ML BOTTLE IV SCH ×4 (03:15→20:30)
[2018-03-06 04:51] LABS: ABG Base Excess 7.1 MMOL/L (-2.5-2.5); ABG HCO3 31.8 MMOL/L (20-26); ABG PCO2 45.9 MM HG (35-48); ABG PH 7.459 (7.35-7.45); ABG PO2 97.9 MM HG (80-95); ABG TCO2 33.2 MMOL/L (23-27); Allen Test Positive; Pt O2 Delivery Device Ventilator
[2018-03-06] MEDS: LEVOTHYROXINE 175 MCG TABLET PO SCH (06:13)
[2018-03-06] MEDS: INSULIN REGULAR 100 UNIT/ML SUBCUT SCH ×4 (06:13→23:53)
[2018-03-06] MEDS: POLYETHYLENE GLYCOL POWDER 17 GM PACK PER TUBE SCH (08:31)
[2018-03-06] MEDS: FLUoxetine 20 MG CAPSULE PO SCH ×2 (08:32→20:28)
[2018-03-06] MEDS: APIXABAN 5 MG TABLET PO SCH ×2 (08:32→20:28)
[2018-03-06] MEDS: LANSOPRAZOLE ODT 30 MG TABLET PER TUBE SCH (08:32)
[2018-03-06] MEDS: POLYCARBOPHIL 625 MG TABLET PO SCH ×3 (08:33→20:28)
[2018-03-06] MEDS: MULTIVITAMIN (BEROCCA) TABLET PO SCH (08:33)
[2018-03-06] MEDS: GABAPENTIN 300 MG CAPSULE PO SCH ×3 (08:33→20:28)
[2018-03-06] MEDS: DILTIAZEM 30 MG TABLET PO SCH ×4 (08:33→20:28)
[2018-03-06] MEDS: PRAVASTATIN 40 MG TABLET PO SCH (08:33)
[2018-03-06] MEDS: METOPROLOL TARTRATE 50 MG TABLET PO SCH ×2 (08:33→20:27)
[2018-03-06] MEDS: DOCUSATE SODIUM 100 MG/10 ML UDCUP PO SCH ×2 (08:33→20:27)
[2018-03-06] MEDS: OMEGA 3 ACID ETHYL ESTERS 1 GM CAPSULE PO SCH (08:33)
[2018-03-06] MEDS: CLINDAMYCIN INJ 600 MG in PREMIX 1 EACH IV SCH ×3 (08:42→23:53)
[2018-03-06] MEDS: FUROSEMIDE 40 MG/4 ML VIAL IV SCH (08:43)
[2018-03-06] MEDS: methylPREDNISolone SOD SUC 40 MG/1 ML VIAL IV SCH ×2 (08:46→20:27)
[2018-03-06] MEDS: CEFEPIME 1,000 MG in SYRINGE 1 EACH IV SCH ×2 (08:50→20:27)
[2018-03-06] MEDS: LISINOPRIL 10 MG TABLET PO SCH (08:52)
[2018-03-06] MEDS: amLODIPine 5 MG TABLET PO SCH (08:52)
[2018-03-06] MEDS: ASCORBIC ACID 500 MG TABLET PO SCH ×2 (15:06→20:27)
[2018-03-06] MEDS: diphenhydrAMINE CAP 25 MG CAPSULE PO SCH (20:28)
[2018-03-07] MEDS: PROPOFOL 1,000 MG/100 ML BOTTLE IV SCH ×4 (01:58→18:20)
[2018-03-07 04:19] LABS: ABG Base Excess 7.1 MMOL/L (-2.5-2.5); ABG Oxygen Saturation 98.6 % (95-100); ABG PCO2 42.5 MM HG (35-48); ABG PH 7.477 (7.35-7.45); ABG TCO2 27.7 MMOL/L (23-27); Allen Test Positive; Pt O2 Delivery Device Ventilator
[2018-03-07] MEDS: INSULIN REGULAR 100 UNIT/ML SUBCUT SCH ×4 (06:04→18:59)
[2018-03-07] MEDS: LEVOTHYROXINE 175 MCG TABLET PO SCH (06:05)
[2018-03-07] MEDS: POLYETHYLENE GLYCOL POWDER 17 GM PACK PER TUBE SCH (08:46)
[2018-03-07] MEDS: DOCUSATE SODIUM 100 MG/10 ML UDCUP PO SCH ×2 (08:46→21:13)
[2018-03-07] MEDS: LANSOPRAZOLE ODT 30 MG TABLET PER TUBE SCH (08:47)
[2018-03-07] MEDS: ASCORBIC ACID 500 MG TABLET PO SCH ×2 (08:47→21:13)
[2018-03-07] MEDS: MULTIVITAMIN (BEROCCA) TABLET PO SCH (08:47)
[2018-03-07] MEDS: APIXABAN 5 MG TABLET PO SCH ×2 (08:47→21:13)
[2018-03-07] MEDS: DILTIAZEM 30 MG TABLET PO SCH ×4 (08:48→21:13)
[2018-03-07] MEDS: amLODIPine 5 MG TABLET PO SCH (08:48)
[2018-03-07] MEDS: POLYCARBOPHIL 625 MG TABLET PO SCH ×3 (08:48→21:12)
[2018-03-07] MEDS: OMEGA 3 ACID ETHYL ESTERS 1 GM CAPSULE PO SCH (08:48)
[2018-03-07] MEDS: FLUoxetine 20 MG CAPSULE PO SCH ×2 (08:48→21:13)
[2018-03-07] MEDS: LISINOPRIL 10 MG TABLET PO SCH (08:49)
[2018-03-07] MEDS: GABAPENTIN 300 MG CAPSULE PO SCH ×3 (08:49→21:13)
[2018-03-07] MEDS: PRAVASTATIN 40 MG TABLET PO SCH (08:49)
[2018-03-07] MEDS: METOPROLOL TARTRATE 50 MG TABLET PO SCH ×2 (08:49→21:12)
[2018-03-07] MEDS: CLINDAMYCIN INJ 600 MG in PREMIX 1 EACH IV SCH ×3 (08:51→23:51)
[2018-03-07] MEDS: CEFEPIME 1,000 MG in SYRINGE 1 EACH IV SCH ×2 (09:02→21:14)
[2018-03-07] MEDS: methylPREDNISolone SOD SUC 40 MG/1 ML VIAL IV SCH ×2 (09:06→21:15)
[2018-03-07] MEDS: FUROSEMIDE 40 MG/4 ML VIAL IV SCH (09:08)
[2018-03-07] MEDS: ACETAMINOPHEN 325 MG TABLET PO PRN (17:38)
[2018-03-07] MEDS: PHENYLEPHRINE DRIP 40 MG/250 ML PREMIX IV PRN (21:06)
[2018-03-07] MEDS: diphenhydrAMINE CAP 25 MG CAPSULE PO SCH (21:14)
[2018-03-08] MEDS: INSULIN REGULAR 100 UNIT/ML SUBCUT SCH ×5 (00:15→23:26)
[2018-03-08] MEDS: PROPOFOL 1,000 MG/100 ML BOTTLE IV SCH (01:05)
[2018-03-08 04:40] LABS: ABG Base Excess 9.2 MMOL/L (-2.5-2.5); ABG Oxygen Saturation 95.9 % (95-100); ABG PCO2 36.8 MM HG (35-48); ABG PH 7.557 (7.35-7.45); ABG PO2 85.4 MM HG (80-95); ABG TCO2 33.1 MMOL/L (23-27)
[2018-03-08 05:32] LABS: Calcium 9.2 MG/DL (8.5-10.1); Potassium 4.6 MMOL/L (3.5-5.1)
[2018-03-08 05:37] LABS: Prealbumin 44.8 MG/DL (20-40)
[2018-03-08] MEDS: LEVOTHYROXINE 175 MCG TABLET PO SCH (06:08)
[2018-03-08] MEDS: CEFEPIME 1,000 MG in SYRINGE 1 EACH IV SCH ×2 (07:50→20:20)
[2018-03-08] MEDS: methylPREDNISolone SOD SUC 40 MG/1 ML VIAL IV SCH ×2 (07:55→20:21)
[2018-03-08] MEDS: CLINDAMYCIN INJ 600 MG in PREMIX 1 EACH IV SCH ×3 (07:58→23:25)
[2018-03-08] MEDS: DOCUSATE SODIUM 100 MG/10 ML UDCUP PO SCH ×2 (08:13→20:23)
[2018-03-08] MEDS: FUROSEMIDE 40 MG/4 ML VIAL IV SCH (08:13)
[2018-03-08] MEDS: ASCORBIC ACID 500 MG TABLET PO SCH ×2 (08:13→20:22)
[2018-03-08] MEDS: POTASSIUM CHLORIDE 20 MEQ/15 ML UDCUP PO SCH ×2 (08:13→20:22)
[2018-03-08] MEDS: MULTIVITAMIN (BEROCCA) TABLET PO SCH (08:13)
[2018-03-08] MEDS: PRAVASTATIN 40 MG TABLET PO SCH (08:14)
[2018-03-08] MEDS: POLYETHYLENE GLYCOL POWDER 17 GM PACK PER TUBE SCH (08:14)
[2018-03-08] MEDS: OMEGA 3 ACID ETHYL ESTERS 1 GM CAPSULE PO SCH (08:14)
[2018-03-08] MEDS: LANSOPRAZOLE ODT 30 MG TABLET PER TUBE SCH (08:14)
[2018-03-08] MEDS: GABAPENTIN 300 MG CAPSULE PO SCH ×3 (08:14→20:22)
[2018-03-08] MEDS: APIXABAN 5 MG TABLET PO SCH ×2 (08:14→20:22)
[2018-03-08] MEDS: amLODIPine 5 MG TABLET PO SCH (10:18)
[2018-03-08] MEDS: POLYCARBOPHIL 625 MG TABLET PO SCH ×3 (10:18→20:22)
[2018-03-08] MEDS: LISINOPRIL 10 MG TABLET PO SCH (10:18)
[2018-03-08 10:19] LABS: ABG Base Excess 5.4 MMOL/L (-2.5-2.5); ABG HCO3 29.3 MMOL/L (20-26); ABG Oxygen Saturation 95.4 % (95-100); ABG PCO2 44.4 MM HG (35-48); ABG PH 7.442 (7.35-7.45); ABG PO2 83.4 MM HG (80-95); ABG TCO2 26.8 MMOL/L (23-27)
[2018-03-08] MEDS: METOPROLOL TARTRATE 50 MG TABLET PO SCH ×2 (10:19→20:33)
[2018-03-08] MEDS: DILTIAZEM 30 MG TABLET PO SCH ×4 (10:19→20:22)
[2018-03-08] MEDS: FLUoxetine 20 MG CAPSULE PO SCH ×2 (10:19→20:33)
[2018-03-08 12:23] LABS: ABG Base Excess 4.9 MMOL/L (-2.5-2.5); ABG HCO3 28.6 MMOL/L (20-26); ABG Oxygen Saturation 88.1 % (95-100); ABG PCO2 44.7 MM HG (35-48); ABG PH 7.434 (7.35-7.45); ABG PO2 59.3 MM HG (80-95); ABG TCO2 26.5 MMOL/L (23-27); Pt O2 Delivery Device Other
[2018-03-08] MEDS: ACETAMINOPHEN 325 MG TABLET PO PRN (14:31)
[2018-03-08] MEDS: diphenhydrAMINE CAP 25 MG CAPSULE PO SCH (20:22)
[2018-03-09 03:21] LABS: Basophils % 0.2 % (0.0-0.8); Hematocrit 35.9 VOL% (35.7-47.0); Immature Granulocytes % 3.8 %; Immature Granulocytes Absolute 0.81 #; Lymphocytes # 1.2 10*3/uL (1.4-4.0); Lymphocytes % 5.6 % (21.3-54.2); Mean Corpuscular HGB Conc 33.4 GM/DL (32-36); Mean Corpuscular Hemoglobin 31 PG (27-34); Mean Corpuscular Volume 93.5 FL (87-102); Mean Platelet Volume 12.8 FL (9.6-12.0); Monocytes # 0.6 10*3/uL (0.11-0.8); Monocytes % 2.8 % (1.7-12.7); Neutrophils # 18.5 10*3/uL (1.4-7.4); Neutrophils % 87.6 % (38.7-73.9); Platelet Count 290 T/CUMM (130-400); Red Blood Count 3.84 MC/CUMM (3.8-5.5); Red Cell Distribution Width 13.1 % (9.3-17.3); White Blood Count 21.1 T/CUMM (4-12)
[2018-03-09 03:41] LABS: ABG Base Excess 3.8 MMOL/L (-2.5-2.5); ABG HCO3 27.7 MMOL/L (20-26); ABG Oxygen Saturation 94.9 % (95-100); ABG PO2 78.3 MM HG (80-95); ABG TCO2 25.2 MMOL/L (23-27); Allen Test Positive; Pt O2 Delivery Device Other
[2018-03-09 03:54] LABS: Calcium 8.6 MG/DL (8.5-10.1); Osmolality,Calculated 286.2 MOS/KG (273-304); Potassium 4.5 MMOL/L (3.5-5.1)
[2018-03-09 04:35] LABS: Band Neutrophils 3 % (0-10); Lymphocytes 6 % (20-55); Macrocytosis Slight; Platelet Estimate Normal; Segmented Neutrophils 87 % (50-85); Total Cells Counted 100
[2018-03-09] MEDS: LEVOTHYROXINE 175 MCG TABLET PO SCH (05:54)
[2018-03-09] MEDS: INSULIN REGULAR 100 UNIT/ML SUBCUT SCH ×3 (05:54→17:17)
[2018-03-09] MEDS ORDERED: AMIODARONE INJ 150 MG in DEXTROSE 5% 100 ML IV ONE (06:49)
[2018-03-09] MEDS ORDERED: AMIODARONE INJ 450 MG in DEXTROSE 5% 241 ML IV SCH (07:00)
[2018-03-09] MEDS: CLINDAMYCIN INJ 600 MG in PREMIX 1 EACH IV SCH ×2 (07:58→16:24)
[2018-03-09] MEDS: CEFEPIME 1,000 MG in SYRINGE 1 EACH IV SCH ×2 (08:04→21:00)
[2018-03-09] MEDS: methylPREDNISolone SOD SUC 40 MG/1 ML VIAL IV SCH ×2 (08:12→21:01)
[2018-03-09] MEDS: FUROSEMIDE 40 MG/4 ML VIAL IV SCH (08:12)
[2018-03-09] MEDS: DOCUSATE SODIUM 100 MG/10 ML UDCUP PO SCH ×2 (08:15→20:29)
[2018-03-09] MEDS: POLYETHYLENE GLYCOL POWDER 17 GM PACK PER TUBE SCH (08:16)
[2018-03-09] MEDS: OMEGA 3 ACID ETHYL ESTERS 1 GM CAPSULE PO SCH (08:17)
[2018-03-09] MEDS: GABAPENTIN 300 MG CAPSULE PO SCH ×3 (08:17→21:02)
[2018-03-09] MEDS: METOPROLOL TARTRATE 50 MG TABLET PO SCH ×2 (08:17→21:02)
[2018-03-09] MEDS: amLODIPine 5 MG TABLET PO SCH (08:17)
[2018-03-09] MEDS: FLUoxetine 20 MG CAPSULE PO SCH ×2 (08:17→21:03)
[2018-03-09] MEDS: LISINOPRIL 10 MG TABLET PO SCH (08:17)
[2018-03-09] MEDS: POLYCARBOPHIL 625 MG TABLET PO SCH ×3 (08:17→21:02)
[2018-03-09] MEDS: PRAVASTATIN 40 MG TABLET PO SCH (08:17)
[2018-03-09] MEDS: ASCORBIC ACID 500 MG TABLET PO SCH ×2 (08:18→21:03)
[2018-03-09] MEDS: APIXABAN 5 MG TABLET PO SCH ×2 (08:18→21:02)
[2018-03-09] MEDS: LANSOPRAZOLE ODT 30 MG TABLET PER TUBE SCH (08:18)
[2018-03-09] MEDS: MULTIVITAMIN (BEROCCA) TABLET PO SCH (08:18)
[2018-03-09] MEDS: DILTIAZEM 30 MG TABLET PO SCH ×4 (08:18→21:01)
[2018-03-09] MEDS: POTASSIUM CHLORIDE 20 MEQ TABLET PO SCH ×2 (08:21→21:02)
[2018-03-09] MEDS: AMIODARONE INJ 450 MG in DEXTROSE 5% 241 ML IV SCH (17:22)
[2018-03-09] MEDS: diphenhydrAMINE CAP 25 MG CAPSULE PO SCH (21:01)
[2018-03-10] MEDS: CLINDAMYCIN INJ 600 MG in PREMIX 1 EACH IV SCH ×3 (00:13→17:20)
[2018-03-10] MEDS: INSULIN REGULAR 100 UNIT/ML SUBCUT SCH ×4 (00:14→17:20)
[2018-03-10] MEDS: AMIODARONE INJ 450 MG in DEXTROSE 5% 241 ML IV SCH ×2 (03:05→18:27)
[2018-03-10 05:16] LABS: Basophils # 0.1 10*3/uL (0.0-0.2); Basophils % 0.3 % (0.0-0.8); Hematocrit 33.9 VOL% (35.7-47.0); Hemoglobin 11.3 GM/DL (12.0-16.0); Immature Granulocytes % 3.9 %; Immature Granulocytes Absolute 0.84 #; Lymphocytes % 4.7 % (21.3-54.2); Mean Corpuscular HGB Conc 33.3 GM/DL (32-36); Mean Corpuscular Hemoglobin 31 PG (27-34); Mean Corpuscular Volume 93.6 FL (87-102); Mean Platelet Volume 12.9 FL (9.6-12.0); Monocytes # 0.4 10*3/uL (0.11-0.8); NRBC # 0.02 10*3/uL; Neutrophils # 19.1 10*3/uL (1.4-7.4); Neutrophils % 89.1 % (38.7-73.9); Platelet Count 338 T/CUMM (130-400); Red Blood Count 3.62 MC/CUMM (3.8-5.5); White Blood Count 21.4 T/CUMM (4-12)
[2018-03-10 05:18] LABS: Calcium 8.7 MG/DL (8.5-10.1); Osmolality,Calculated 295.4 MOS/KG (273-304); Potassium 5.2 MMOL/L (3.5-5.1)
[2018-03-10 05:47] LABS: Band Neutrophils 1 % (0-10); Hypochromasia 1+; Lymphocytes 10 % (20-55); Platelet Estimate Adequate; Segmented Neutrophils 86 % (50-85); Total Cells Counted 100
[2018-03-10 05:48] LABS: Macrocytosis Slight
[2018-03-10] MEDS: LEVOTHYROXINE 175 MCG TABLET PO SCH (06:12)
[2018-03-10] MEDS ORDERED: FUROSEMIDE 20 MG/2 ML VIAL ONE (08:21)
[2018-03-10] MEDS: FLUoxetine 20 MG CAPSULE PO SCH ×2 (09:03→22:03)
[2018-03-10] MEDS: ASCORBIC ACID 500 MG TABLET PO SCH ×2 (09:03→22:03)
[2018-03-10] MEDS: GABAPENTIN 300 MG CAPSULE PO SCH ×3 (09:04→22:03)
[2018-03-10] MEDS: POLYCARBOPHIL 625 MG TABLET PO SCH ×3 (09:06→22:02)
[2018-03-10] MEDS: LANSOPRAZOLE ODT 30 MG TABLET PER TUBE SCH (09:06)
[2018-03-10] MEDS: PRAVASTATIN 40 MG TABLET PO SCH (09:06)
[2018-03-10] MEDS: AMIODARONE 200 MG TABLET PO SCH (09:06)
[2018-03-10] MEDS: APIXABAN 5 MG TABLET PO SCH ×2 (09:06→22:02)
[2018-03-10] MEDS: MULTIVITAMIN (BEROCCA) TABLET PO SCH (09:07)
[2018-03-10] MEDS: OMEGA 3 ACID ETHYL ESTERS 1 GM CAPSULE PO SCH (09:08)
[2018-03-10] MEDS: amLODIPine 5 MG TABLET PO SCH (09:08)
[2018-03-10] MEDS: POTASSIUM CHLORIDE 20 MEQ TABLET PO SCH (09:09)
[2018-03-10] MEDS: METOPROLOL TARTRATE 50 MG TABLET PO SCH ×2 (09:09→22:02)
[2018-03-10] MEDS: LISINOPRIL 10 MG TABLET PO SCH ×2 (09:10)
[2018-03-10] MEDS: DOCUSATE SODIUM 100 MG/10 ML UDCUP PO SCH ×2 (09:10→22:02)
[2018-03-10] MEDS: POLYETHYLENE GLYCOL POWDER 17 GM PACK PER TUBE SCH (09:10)
[2018-03-10] MEDS: DILTIAZEM 30 MG TABLET PO SCH ×4 (09:10→22:02)
[2018-03-10] MEDS: CEFEPIME 1,000 MG in SYRINGE 1 EACH IV SCH ×2 (09:11→22:01)
[2018-03-10] MEDS: methylPREDNISolone SOD SUC 40 MG/1 ML VIAL IV SCH ×2 (09:16→22:01)
[2018-03-10] MEDS: FUROSEMIDE 40 MG/4 ML VIAL IV SCH (09:16)
[2018-03-10] MEDS: LISINOPRIL 5 MG TABLET PO SCH (09:57)
[2018-03-10] MEDS: SODIUM POLYSTYRENE SULFATE 15 GM/60 ML BOTTLE PO STA ×2 (13:04→15:00)
[2018-03-10] MEDS: diphenhydrAMINE CAP 25 MG CAPSULE PO SCH (22:02)
[2018-03-11] MEDS: INSULIN REGULAR 100 UNIT/ML SUBCUT SCH ×3 (00:47→12:15)
[2018-03-11] MEDS: CLINDAMYCIN INJ 600 MG in PREMIX 1 EACH IV SCH ×2 (00:47→08:42)
[2018-03-11 05:14] LABS: Basophils % 0.2 % (0.0-0.8); Eosinophils % 0.1 % (0.00-10.9); Hematocrit 32.4 VOL% (35.7-47.0); Hemoglobin 10.7 GM/DL (12.0-16.0); Immature Granulocytes % 3.1 %; Mean Corpuscular Hemoglobin 31 PG (27-34); Mean Corpuscular Volume 93.9 FL (87-102); Mean Platelet Volume 12.6 FL (9.6-12.0); Monocytes # 0.4 10*3/uL (0.11-0.8); Monocytes % 1.9 % (1.7-12.7); Neutrophils # 17.1 10*3/uL (1.4-7.4); Neutrophils % 89.7 % (38.7-73.9); Platelet Count 322 T/CUMM (130-400); Red Blood Count 3.45 MC/CUMM (3.8-5.5); Red Cell Distribution Width 12.8 % (9.3-17.3); White Blood Count 19.1 T/CUMM (4-12)
[2018-03-11 05:41] LABS: Hypochromasia 1+; Lymphocytes 5 % (20-55); Platelet Estimate Adequate; Segmented Neutrophils 95 % (50-85); Total Cells Counted 100
[2018-03-11 05:42] LABS: Calcium 8.6 MG/DL (8.5-10.1); Osmolality,Calculated 296.2 MOS/KG (273-304); Potassium 4.8 MMOL/L (3.5-5.1)
[2018-03-11 05:42] LABS: Macrocytosis Slight
[2018-03-11 05:43] LABS: Calcium 8.6 MG/DL (8.5-10.1); Osmolality,Calculated 292.5 MOS/KG (273-304); Potassium 4.8 MMOL/L (3.5-5.1)
[2018-03-11] MEDS: LEVOTHYROXINE 175 MCG TABLET PO SCH (06:24)
[2018-03-11] MEDS: FLUoxetine 20 MG CAPSULE PO SCH (08:35)
[2018-03-11] MEDS: POLYETHYLENE GLYCOL POWDER 17 GM PACK PER TUBE SCH (08:35)
[2018-03-11] MEDS: METOPROLOL TARTRATE 50 MG TABLET PO SCH (08:35)
[2018-03-11] MEDS: POLYCARBOPHIL 625 MG TABLET PO SCH (08:35)
[2018-03-11] MEDS: OMEGA 3 ACID ETHYL ESTERS 1 GM CAPSULE PO SCH (08:35)
[2018-03-11] MEDS: APIXABAN 5 MG TABLET PO SCH (08:35)
[2018-03-11] MEDS: ASCORBIC ACID 500 MG TABLET PO SCH (08:35)
[2018-03-11] MEDS: DILTIAZEM 30 MG TABLET PO SCH ×2 (08:35→12:01)
[2018-03-11] MEDS: PRAVASTATIN 40 MG TABLET PO SCH (08:35)
[2018-03-11] MEDS: DOCUSATE SODIUM 100 MG/10 ML UDCUP PO SCH (08:35)
[2018-03-11] MEDS: AMIODARONE 200 MG TABLET PO SCH (08:35)
[2018-03-11] MEDS: MULTIVITAMIN (BEROCCA) TABLET PO SCH (08:35)
[2018-03-11] MEDS: GABAPENTIN 300 MG CAPSULE PO SCH (08:35)
[2018-03-11] MEDS: LISINOPRIL 5 MG TABLET PO SCH (08:35)
[2018-03-11] MEDS: LANSOPRAZOLE ODT 30 MG TABLET PER TUBE SCH (08:35)
[2018-03-11] MEDS: methylPREDNISolone SOD SUC 40 MG/1 ML VIAL IV SCH (08:37)
[2018-03-11] MEDS: CEFEPIME 1,000 MG in SYRINGE 1 EACH IV SCH (08:39)
[2018-03-11] MEDS: AMIODARONE INJ 450 MG in DEXTROSE 5% 241 ML IV SCH (09:11)
[2018-03-11 14:14] VITALS: BP 109/62
== END 2018-03-11 14:35 | DRG 166 ==
LOC: N.ED 16:42 → N.CC 19:38
PROVIDERS: ADMIT Internal Medicine Cardiovascular Disease; ATTEND Internal Medicine Cardiovascular Disease

== ENCOUNTER 2019-06-28 15:20 | Observation (INO) ==
[2019-06-28] MEDS ORDERED: FUROSEMIDE 100 MG/10 ML VIAL IV STA (16:03)
[2019-06-28 16:17] LABS: Basophils % 0.3 % (0.0-0.8); Eosinophils # 0.1 10*3/uL (0.0-0.87); Eosinophils % 0.6 % (0.00-10.9); Hematocrit 36.4 VOL% (35.7-47.0); Hemoglobin 11.9 GM/DL (12.0-16.0); Immature Granulocytes % 0.5 %; Immature Granulocytes Absolute 0.06 #; Lymphocytes # 1.3 10*3/uL (1.4-4.0); Lymphocytes % 11.2 % (21.3-54.2); Mean Corpuscular HGB Conc 32.7 GM/DL (32-36); Mean Corpuscular Volume 99.2 FL (87-102); Mean Platelet Volume 11.1 FL (9.6-12.0); Monocytes % 8.9 % (1.7-12.7); Neutrophils % 78.5 % (38.7-73.9); Platelet Count 199 T/CUMM (130-400); Red Blood Count 3.67 MC/CUMM (3.8-5.5); Red Cell Distribution Width 13.5 % (9.3-17.3); White Blood Count 11.7 T/CUMM (4-12)
[2019-06-28 16:43] LABS: Albumin 3.1 G/DL (3.4-5.0); Bilirubin,Total 0.5 MG/DL (0.2-1.0); Calcium 8.9 MG/DL (8.5-10.1); Osmolality,Calculated 284.5 MOS/KG (273-304); Total Protein 6.7 G/DL (6.4-8.3)
[2019-06-28] MEDS ORDERED: DEXTROSE 50% 25 GM/50 ML VIAL IV PRN (18:31)
[2019-06-28] MEDS ORDERED: ACETAMINOPHEN 325 MG TABLET PO PRN (18:31)
[2019-06-28] MEDS ORDERED: ONDANSETRON 4 MG/2 ML VIAL IV PRN (18:31)
[2019-06-28] MEDS ORDERED: NICOTINE 21 MG/24 HR PATCH TRANSDERM PRN (18:31)
[2019-06-28] MEDS ORDERED: GLUCAGON 1 MG VIAL IM PRN (18:31)
[2019-06-28] MEDS ORDERED: DOCUSATE SODIUM 100 MG CAPSULE PO PRN (18:31)
[2019-06-28] MEDS ORDERED: traZODone 50 MG TABLET PO PRN (18:31)
[2019-06-28] MEDS ORDERED: diphenhydrAMINE CAP 25 MG CAPSULE PO PRN (18:37)
[2019-06-28] MEDS ORDERED: ENOXAPARIN 40 MG/0.4 ML SYRINGE SUBCUT SCH (19:00)
[2019-06-28] MEDS ORDERED: PROPAFENONE 150 MG TABLET PO SCH (21:00)
[2019-06-28] MEDS: INSULIN LISPRO 100 UNIT/ML SUBCUT SCH (21:34)
[2019-06-28] MEDS: GABAPENTIN 300 MG CAPSULE PO SCH (21:38)
[2019-06-28] MEDS: APIXABAN 5 MG TABLET PO SCH (21:38)
[2019-06-28 23:02] LABS: ABG Base Excess 5.5 MMOL/L (-2.5-2.5); ABG HCO3 29.2 MMOL/L (20-26); ABG Oxygen Saturation 90.2 % (95-100); ABG PCO2 44.4 MM HG (35-48); ABG PH 7.442 (7.35-7.45); ABG PO2 58.7 MM HG (80-95); ABG TCO2 26.7 MMOL/L (23-27); Allen Test Positive
[2019-06-28] MEDS: LISINOPRIL 20 MG TABLET PO SCH (23:10)
[2019-06-29 04:50] LABS: Basophils % 0.2 % (0.0-0.8); Eosinophils % 0.1 % (0.00-10.9); Hematocrit 34.5 VOL% (35.7-47.0); Hemoglobin 11.3 GM/DL (12.0-16.0); Immature Granulocytes % 0.5 %; Immature Granulocytes Absolute 0.07 #; Lymphocytes # 1.7 10*3/uL (1.4-4.0); Lymphocytes % 12.4 % (21.3-54.2); Mean Corpuscular HGB Conc 32.8 GM/DL (32-36); Mean Corpuscular Volume 98.3 FL (87-102); Mean Platelet Volume 12.3 FL (9.6-12.0); Monocytes % 8.1 % (1.7-12.7); NRBC # 0.02 10*3/uL; Neutrophils % 78.7 % (38.7-73.9); Platelet Count 190 T/CUMM (130-400); Red Blood Count 3.51 MC/CUMM (3.8-5.5); Red Cell Distribution Width 13.5 % (9.3-17.3); White Blood Count 13.3 T/CUMM (4-12)
[2019-06-29 05:22] LABS: Calcium 8.9 MG/DL (8.5-10.1); Osmolality,Calculated 278.8 MOS/KG (273-304); Risk Ratio 1.56; Thyroid Stimulating Hormone 2.88 uIU/ml (0.358-3.74); VLDL CHOLESTEROL 15.8 MG/DL
[2019-06-29] MEDS: LEVOTHYROXINE 175 MCG TABLET PO SCH ×2 (06:04→09:52)
[2019-06-29] MEDS: INSULIN LISPRO 100 UNIT/ML SUBCUT SCH ×4 (08:38→20:28)
[2019-06-29] MEDS ORDERED: SIMVASTATIN 20 MG TABLET PO SCH (09:00)
[2019-06-29] MEDS ORDERED: LISINOPRIL 20 MG TABLET PO SCH (09:00)
[2019-06-29] MEDS ORDERED: amLODIPine 10 MG TABLET PO SCH (09:00)
[2019-06-29] MEDS: FUROSEMIDE 20 MG/2 ML VIAL IV SCH ×2 (09:41→15:40)
[2019-06-29] MEDS: hydroCHLOROthiazide 25 MG TABLET PO SCH (09:43)
[2019-06-29] MEDS: MAGNESIUM GLUCONATE 500 MG TABLET PO SCH (09:44)
[2019-06-29] MEDS: FLUoxetine 20 MG CAPSULE PO SCH (09:45)
[2019-06-29] MEDS: ASCORBIC ACID 500 MG TABLET PO SCH (09:47)
[2019-06-29] MEDS: PANTOPRAZOLE 40 MG TABLET PO SCH (09:47)
[2019-06-29] MEDS: DILTIAZEM CD 120 MG CAPSULE PO SCH (09:49)
[2019-06-29] MEDS: METOPROLOL TARTRATE 100 MG TABLET PO SCH (09:52)
[2019-06-29] MEDS: APIXABAN 5 MG TABLET PO SCH ×2 (09:53→20:28)
[2019-06-29] MEDS: GABAPENTIN 300 MG CAPSULE PO SCH ×3 (09:53→20:28)
[2019-06-29] MEDS ORDERED: DILTIAZEM CD 120 MG CAPSULE PO ONE (10:32)
[2019-06-29] MEDS ORDERED: MAGNESIUM SULF RIDER 2 GM in PREMIX 1 EACH IV PRN (10:45)
[2019-06-29] MEDS ORDERED: MAGNESIUM SULF RIDER 4 GM in PREMIX 1 EACH IV PRN (10:45)
[2019-06-29] MEDS ORDERED: methylPREDNISolone SOD SUC 125 MG/2 ML VIAL IV ONE (10:47)
[2019-06-29] MEDS ORDERED: diphenhydrAMINE 50 MG/1 ML VIAL IV ONE (10:48)
[2019-06-29 11:13] LABS: ABG Base Excess 9.6 MMOL/L (-2.5-2.5); ABG HCO3 33.1 MMOL/L (20-26); ABG Oxygen Saturation 86.4 % (95-100); ABG PCO2 46.3 MM HG (35-48); ABG PO2 49.3 MM HG (80-95); ABG TCO2 30.7 MMOL/L (23-27); Allen Test Positive
[2019-06-29] MEDS: ALBUTEROL/IPRATROPIUM 3 ML NEB RESP TX SCH (20:19)
[2019-06-29] MEDS: LISINOPRIL 20 MG TABLET PO SCH (20:28)
[2019-06-29] MEDS: methylPREDNISolone SOD SUC 40 MG/1 ML VIAL IV SCH (20:29)
[2019-06-29] MEDS ORDERED: ATORVASTATIN 20 MG TABLET PO SCH (21:00)
[2019-06-30] MEDS: ALBUTEROL/IPRATROPIUM 3 ML NEB RESP TX SCH ×2 (00:58→07:05)
[2019-06-30] MEDS: methylPREDNISolone SOD SUC 40 MG/1 ML VIAL IV SCH (03:35)
[2019-06-30] MEDS: LEVOTHYROXINE 175 MCG TABLET PO SCH (05:58)
[2019-06-30 08:07] VITALS: BP 129/73
[2019-06-30] MEDS: INSULIN LISPRO 100 UNIT/ML SUBCUT SCH (08:37)
[2019-06-30] MEDS: FUROSEMIDE 20 MG/2 ML VIAL IV SCH (08:40)
[2019-06-30] MEDS: DILTIAZEM CD 120 MG CAPSULE PO SCH (08:43)
[2019-06-30] MEDS: hydroCHLOROthiazide 25 MG TABLET PO SCH (08:43)
[2019-06-30] MEDS: METOPROLOL TARTRATE 100 MG TABLET PO SCH (08:43)
[2019-06-30] MEDS: FLUoxetine 20 MG CAPSULE PO SCH (08:43)
[2019-06-30] MEDS: PANTOPRAZOLE 40 MG TABLET PO SCH (08:44)
[2019-06-30] MEDS: MAGNESIUM GLUCONATE 500 MG TABLET PO SCH (08:44)
[2019-06-30] MEDS: ASCORBIC ACID 500 MG TABLET PO SCH (08:44)
[2019-06-30] MEDS: GABAPENTIN 300 MG CAPSULE PO SCH (08:46)
[2019-06-30] MEDS: APIXABAN 5 MG TABLET PO SCH (08:46)
[2019-06-30] MEDS ORDERED: predniSONE 20 MG TABLET PO ONE (09:00)
== END 2019-06-30 12:26 | disposition home health service (06) ==
LOC: N.EDINP 15:20 → N.ED 15:20 → SUATTDRO 18:31 → N.2W 20:16
PROVIDERS: ADMIT Internal Medicine; ATTEND Internal Medicine Cardiovascular Disease

== ENCOUNTER 2019-09-11 18:49 | Inpatient (IN) ==
[2019-09-11 20:00] LABS: Basophils % 0.4 % (0.0-0.8); Eosinophils # 0.2 10*3/uL (0.0-0.87); Eosinophils % 1.9 % (0.00-10.9); Hemoglobin 11.6 GM/DL (12.0-16.0); Immature Granulocytes % 0.5 %; Immature Granulocytes Absolute 0.05 #; Lymphocytes # 1.6 10*3/uL (1.4-4.0); Lymphocytes % 16.4 % (21.3-54.2); Mean Corpuscular HGB Conc 32.2 GM/DL (32-36); Mean Platelet Volume 11.2 FL (9.6-12.0); Monocytes % 8.3 % (1.7-12.7); Neutrophils % 72.5 % (38.7-73.9); Platelet Count 214 T/CUMM (130-400); Red Blood Count 3.71 MC/CUMM (3.8-5.5); Red Cell Distribution Width 14.6 % (9.3-17.3); White Blood Count 9.8 T/CUMM (4-12)
[2019-09-11 20:19] LABS: Alanine Aminotransferase 35 U/L (13-56); Albumin 2.8 G/DL (3.4-5.0); Alkaline Phosphatase 98 U/L (45-117); Aspartate Amino Transferase 41 U/L (0-37); Bilirubin,Total < 0.39 MG/DL (0.2-1.0); Blood Urea Nitrogen 19 MG/DL (7-18); Calcium 8.8 MG/DL (8.5-10.1); Estimated Glom Filtration Rate 70 ML/MIN; Glucose 156 MG/DL (74-106); Osmolality,Calculated 281.5 MOS/KG (273-304); Total Protein 6.9 G/DL (6.4-8.3)
[2019-09-11] MEDS ORDERED: DILTIAZEM 25 MG/5 ML VIAL IV ONE (20:35)
[2019-09-11] MEDS ORDERED: DILTIAZEM 50 MG/10 ML VIAL IV STA (21:06)
[2019-09-11] MEDS ORDERED: FUROSEMIDE 40 MG/4 ML VIAL IV STA (21:07)
[2019-09-11] MEDS ORDERED: MAGNESIUM SULF RIDER 1 GM in PREMIX 1 EACH IV STA (21:37)
[2019-09-11] MEDS ORDERED: MAGNESIUM SULF RIDER 2 GM in PREMIX 1 EACH IV STA (21:40)
[2019-09-11] MEDS: dilTIAZem Drip 125 MG/125 ML PREMIX IV SCH (21:55)
[2019-09-12] MEDS ORDERED: ALBUTEROL/IPRATROPIUM 3 ML NEB RESP TX PRN (00:17)
[2019-09-12] MEDS ORDERED: DEXTROSE 50% 25 GM/50 ML VIAL IV PRN ×2 (00:20→00:25)
[2019-09-12] MEDS ORDERED: GLUCAGON 1 MG VIAL IM PRN (00:20)
[2019-09-12] MEDS: methylPREDNISolone SOD SUC 125 MG/2 ML VIAL IV SCH ×3 (02:13→15:45)
[2019-09-12] MEDS: PANTOPRAZOLE 40 MG TABLET PO SCH ×3 (02:13→22:57)
[2019-09-12 05:15] LABS: Basophils % 0.3 % (0.0-0.8); Eosinophils # 0.1 10*3/uL (0.0-0.87); Eosinophils % 1.5 % (0.00-10.9); Hematocrit 32.1 VOL% (35.7-47.0); Hemoglobin 10.4 GM/DL (12.0-16.0); Immature Granulocytes % 0.6 %; Immature Granulocytes Absolute 0.05 #; Lymphocytes # 0.9 10*3/uL (1.4-4.0); Lymphocytes % 10.2 % (21.3-54.2); Mean Corpuscular HGB Conc 32.4 GM/DL (32-36); Mean Platelet Volume 11.8 FL (9.6-12.0); Monocytes % 4.8 % (1.7-12.7); Neutrophils % 82.6 % (38.7-73.9); Platelet Count 192 T/CUMM (130-400); Red Blood Count 3.31 MC/CUMM (3.8-5.5); Red Cell Distribution Width 14.3 % (9.3-17.3); White Blood Count 8.7 T/CUMM (4-12)
[2019-09-12 05:55] LABS: Calcium 8.9 MG/DL (8.5-10.1); Osmolality,Calculated 281.8 MOS/KG (273-304); Thyroid Stimulating Hormone 2.96 uIU/ml (0.358-3.74)
[2019-09-12] MEDS: DILTIAZEM 60 MG TABLET PO SCH (08:41)
[2019-09-12] MEDS: METOPROLOL TARTRATE 50 MG TABLET PO SCH ×2 (08:42→22:56)
[2019-09-12] MEDS: INSULIN LISPRO 100 UNIT/ML SUBCUT SCH ×5 (08:42→22:57)
[2019-09-12] MEDS: GABAPENTIN 300 MG CAPSULE PO SCH ×3 (08:42→22:57)
[2019-09-12] MEDS: FLUTICASONE/SALMETEROL 250-50 DISKUS 14 DOSE INH SCH ×2 (08:48→22:57)
[2019-09-12] MEDS: NICOTINE 14 MG/24 HR PATCH TRANSDERM SCH (09:18)
[2019-09-12] MEDS: MONTELUKAST 10 MG TABLET PO SCH (22:49)
[2019-09-12] MEDS: buPROPion SR 100 MG TABLET PO SCH (22:50)
[2019-09-12] MEDS: APIXABAN 5 MG TABLET PO SCH (22:56)
[2019-09-12] MEDS: FLUoxetine 20 MG CAPSULE PO SCH (22:57)
[2019-09-12] MEDS: dilTIAZem Drip 125 MG/125 ML PREMIX IV SCH (22:58)
[2019-09-13] MEDS ORDERED: methylPREDNISolone SOD SUC 40 MG/1 ML VIAL IV SCH (04:00)
[2019-09-13] MEDS: LEVOTHYROXINE 175 MCG TABLET PO SCH (06:22)
[2019-09-13] MEDS: METOPROLOL TARTRATE 50 MG TABLET PO SCH ×3 (06:22→21:46)
[2019-09-13] MEDS: INSULIN LISPRO 100 UNIT/ML SUBCUT SCH ×4 (07:42→21:45)
[2019-09-13] MEDS: PANTOPRAZOLE 40 MG TABLET PO SCH ×2 (09:15→21:46)
[2019-09-13] MEDS: DILTIAZEM 60 MG TABLET PO SCH (09:15)
[2019-09-13] MEDS: GABAPENTIN 300 MG CAPSULE PO SCH ×3 (09:15→21:45)
[2019-09-13] MEDS: FLUTICASONE/SALMETEROL 250-50 DISKUS 14 DOSE INH SCH ×2 (09:16→21:46)
[2019-09-13] MEDS: APIXABAN 5 MG TABLET PO SCH ×2 (09:16→21:46)
[2019-09-13] MEDS: dilTIAZem Drip 125 MG/125 ML PREMIX IV SCH (11:07)
[2019-09-13] MEDS: buPROPion SR 100 MG TABLET PO SCH (11:29)
[2019-09-13] MEDS: NICOTINE 14 MG/24 HR PATCH TRANSDERM SCH (11:29)
[2019-09-13] MEDS: predniSONE 20 MG TABLET PO SCH (11:39)
[2019-09-13 11:49] LABS: Basophils % 0.1 % (0.0-0.8); Hematocrit 32.6 VOL% (35.7-47.0); Hemoglobin 10.5 GM/DL (12.0-16.0); Immature Granulocytes % 0.8 %; Immature Granulocytes Absolute 0.12 #; Lymphocytes # 0.7 10*3/uL (1.4-4.0); Lymphocytes % 4.3 % (21.3-54.2); Mean Corpuscular HGB Conc 32.2 GM/DL (32-36); Mean Corpuscular Volume 96.4 FL (87-102); Mean Platelet Volume 10.9 FL (9.6-12.0); Monocytes % 3.6 % (1.7-12.7); Neutrophils % 91.2 % (38.7-73.9); Platelet Count 225 T/CUMM (130-400); Red Blood Count 3.38 MC/CUMM (3.8-5.5); White Blood Count 15.3 T/CUMM (4-12)
[2019-09-13 12:03] LABS: Osmolality,Calculated 289.1 MOS/KG (273-304)
[2019-09-13 12:41] LABS: Lymphocytes 3 % (20-55); Reactive Lymphocytes Slight; Segmented Neutrophils 90 % (50-85); Total Cells Counted 100
[2019-09-13 12:42] LABS: Platelet Estimate Normal; Polychromasia Slight
[2019-09-13] MEDS ORDERED: DILTIAZEM CD 120 MG CAPSULE PO ONE (16:36)
[2019-09-13] MEDS ORDERED: lisinopriL 20 MG TABLET PO SCH (21:00)
[2019-09-13] MEDS: FLUoxetine 20 MG CAPSULE PO SCH (21:45)
[2019-09-13] MEDS: MAGNESIUM OXIDE 400 MG TABLET PO SCH (21:45)
[2019-09-13] MEDS: MONTELUKAST 10 MG TABLET PO SCH (21:46)
[2019-09-13] MEDS: ATORVASTATIN 40 MG TABLET PO SCH (21:46)
[2019-09-14] MEDS: dilTIAZem Drip 125 MG/125 ML PREMIX IV SCH (03:27)
[2019-09-14 05:54] LABS: Basophils % 0.1 % (0.0-0.8); Hematocrit 29.9 VOL% (35.7-47.0); Hemoglobin 9.5 GM/DL (12.0-16.0); Immature Granulocytes % 0.9 %; Immature Granulocytes Absolute 0.11 #; Lymphocytes # 1.4 10*3/uL (1.4-4.0); Lymphocytes % 11.3 % (21.3-54.2); Mean Corpuscular HGB Conc 31.8 GM/DL (32-36); Mean Corpuscular Volume 97.7 FL (87-102); Mean Platelet Volume 11.6 FL (9.6-12.0); Monocytes % 6.6 % (1.7-12.7); Neutrophils % 81.1 % (38.7-73.9); Platelet Count 205 T/CUMM (130-400); Red Blood Count 3.06 MC/CUMM (3.8-5.5); Red Cell Distribution Width 14.1 % (9.3-17.3); White Blood Count 12.4 T/CUMM (4-12)
[2019-09-14 06:27] LABS: Calcium 8.7 MG/DL (8.5-10.1)
[2019-09-14] MEDS: LEVOTHYROXINE 175 MCG TABLET PO SCH (06:37)
[2019-09-14] MEDS ORDERED: AMIODARONE INJ 150 MG in DEXTROSE 5% 100 ML IV ONE (08:48)
[2019-09-14] MEDS ORDERED: DILTIAZEM CD 240 MG CAPSULE PO SCH (09:00)
[2019-09-14] MEDS ORDERED: DILTIAZEM CD 120 MG CAPSULE PO SCH (09:00)
[2019-09-14] MEDS ORDERED: SIMVASTATIN 20 MG TABLET PO SCH (09:00)
[2019-09-14] MEDS ORDERED: AMIODARONE INJ 450 MG in DEXTROSE 5% 241 ML IV SCH (09:00)
[2019-09-14] MEDS: INSULIN LISPRO 100 UNIT/ML SUBCUT SCH ×4 (09:43→21:54)
[2019-09-14] MEDS: FLUTICASONE/SALMETEROL 250-50 DISKUS 14 DOSE INH SCH ×2 (09:47→21:52)
[2019-09-14] MEDS: ASCORBIC ACID 500 MG TABLET PO SCH (09:49)
[2019-09-14] MEDS: OMEGA 3 ACID ETHYL ESTERS 1 GM CAPSULE PO SCH (09:49)
[2019-09-14] MEDS: APIXABAN 5 MG TABLET PO SCH ×2 (09:49→21:53)
[2019-09-14] MEDS: METOPROLOL TARTRATE 50 MG TABLET PO SCH ×2 (09:49→21:53)
[2019-09-14] MEDS: hydroCHLOROthiazide 25 MG TABLET PO SCH (09:49)
[2019-09-14] MEDS: GABAPENTIN 300 MG CAPSULE PO SCH ×3 (09:50→21:53)
[2019-09-14] MEDS: predniSONE 20 MG TABLET PO SCH (09:50)
[2019-09-14] MEDS: MAGNESIUM OXIDE 400 MG TABLET PO SCH ×2 (09:50→21:53)
[2019-09-14] MEDS: NICOTINE 14 MG/24 HR PATCH TRANSDERM SCH (09:50)
[2019-09-14] MEDS: PANTOPRAZOLE 40 MG TABLET PO SCH ×2 (09:50→21:53)
[2019-09-14] MEDS: AMIODARONE INJ 450 MG in DEXTROSE 5% 241 ML IV SCH ×2 (16:27→18:34)
[2019-09-14] MEDS: MONTELUKAST 10 MG TABLET PO SCH (21:52)
[2019-09-14] MEDS: ATORVASTATIN 40 MG TABLET PO SCH (21:53)
[2019-09-14] MEDS: FLUoxetine 20 MG CAPSULE PO SCH (21:53)
[2019-09-15 05:37] LABS: Basophils # 0.1 10*3/uL (0.0-0.2); Basophils % 0.4 % (0.0-0.8); Eosinophils # 0.1 10*3/uL (0.0-0.87); Eosinophils % 0.5 % (0.00-10.9); Hematocrit 33.3 VOL% (35.7-47.0); Hemoglobin 10.7 GM/DL (12.0-16.0); Immature Granulocytes % 3.1 %; Immature Granulocytes Absolute 0.37 #; Lymphocytes # 2.5 10*3/uL (1.4-4.0); Lymphocytes % 20.8 % (21.3-54.2); Mean Corpuscular HGB Conc 32.1 GM/DL (32-36); Mean Corpuscular Volume 96.5 FL (87-102); Mean Platelet Volume 11.3 FL (9.6-12.0); Monocytes % 8.7 % (1.7-12.7); Neutrophils % 66.5 % (38.7-73.9); Platelet Count 237 T/CUMM (130-400); Red Blood Count 3.45 MC/CUMM (3.8-5.5); Red Cell Distribution Width 13.9 % (9.3-17.3); White Blood Count 11.8 T/CUMM (4-12)
[2019-09-15] MEDS: LEVOTHYROXINE 175 MCG TABLET PO SCH (06:21)
[2019-09-15] MEDS: AMIODARONE INJ 450 MG in DEXTROSE 5% 241 ML IV SCH ×2 (07:04→07:42)
[2019-09-15] MEDS: INSULIN LISPRO 100 UNIT/ML SUBCUT SCH ×2 (08:38→12:29)
[2019-09-15] MEDS: APIXABAN 5 MG TABLET PO SCH (08:39)
[2019-09-15] MEDS: MAGNESIUM OXIDE 400 MG TABLET PO SCH (08:39)
[2019-09-15] MEDS: METOPROLOL TARTRATE 50 MG TABLET PO SCH (08:39)
[2019-09-15] MEDS: hydroCHLOROthiazide 25 MG TABLET PO SCH (08:39)
[2019-09-15] MEDS: ASCORBIC ACID 500 MG TABLET PO SCH (08:39)
[2019-09-15] MEDS: predniSONE 20 MG TABLET PO SCH (08:40)
[2019-09-15] MEDS: PANTOPRAZOLE 40 MG TABLET PO SCH (08:40)
[2019-09-15] MEDS: GABAPENTIN 300 MG CAPSULE PO SCH ×2 (08:40→14:29)
[2019-09-15] MEDS: OMEGA 3 ACID ETHYL ESTERS 1 GM CAPSULE PO SCH (08:40)
[2019-09-15] MEDS: NICOTINE 14 MG/24 HR PATCH TRANSDERM SCH (08:46)
[2019-09-15] MEDS: FLUTICASONE/SALMETEROL 250-50 DISKUS 14 DOSE INH SCH (08:46)
[2019-09-15] MEDS ORDERED: AMIODARONE 200 MG TABLET PO SCH (09:00)
[2019-09-15] MEDS ORDERED: MAGNESIUM SULF RIDER 2 GM in PREMIX 1 EACH IV ONE (09:25)
[2019-09-15 11:57] VITALS: BP 129/70
== END 2019-09-15 14:31 | disposition home or self-care (01) | DRG 309 ==
LOC: N.ED 18:49 → N.EDINP 23:49 → SUATTDRO 23:49 → N.TELEN 09-12 01:18
PROVIDERS: ADMIT Hospitalist; ATTEND Internal Medicine

== ENCOUNTER 2019-09-19 21:32 | Observation (INO) ==
[2019-09-19] MEDS ORDERED: ALBUTEROL/IPRATROPIUM 3 ML NEB RESP TX STA (22:20)
[2019-09-19] MEDS ORDERED: methylPREDNISolone SOD SUC 125 MG/2 ML VIAL IV STA (22:20)
[2019-09-19] MEDS ORDERED: SODIUM CHLORIDE 0.9% 500 ML IV STA (22:20)
[2019-09-19 22:37] LABS: Basophils % 0.2 % (0.0-0.8); Eosinophils % 0.2 % (0.00-10.9); Hematocrit 35.8 VOL% (35.7-47.0); Hemoglobin 11.6 GM/DL (12.0-16.0); Immature Granulocytes % 1.3 %; Immature Granulocytes Absolute 0.17 #; Lymphocytes # 0.5 10*3/uL (1.4-4.0); Lymphocytes % 3.7 % (21.3-54.2); Mean Corpuscular HGB Conc 32.4 GM/DL (32-36); Mean Corpuscular Volume 94.2 FL (87-102); Mean Platelet Volume 11.9 FL (9.6-12.0); Monocytes % 5.2 % (1.7-12.7); Neutrophils % 89.4 % (38.7-73.9); Platelet Count 286 T/CUMM (130-400); Red Cell Distribution Width 14.4 % (9.3-17.3); White Blood Count 12.7 T/CUMM (4-12)
[2019-09-19 22:52] LABS: ABG Base Excess 4.5 MMOL/L (-2.5-2.5); ABG HCO3 28.3 MMOL/L (20-26); ABG Oxygen Saturation 93.4 % (95-100); ABG PCO2 40.6 MM HG (35-48); ABG PH 7.457 (7.35-7.45); ABG PO2 68.2 MM HG (80-95); Allen Test Positive; Pt O2 Delivery Device Other
[2019-09-19 22:54] LABS: Albumin 2.7 G/DL (3.4-5.0); Bilirubin,Total 0.5 MG/DL (0.2-1.0); Calcium 8.7 MG/DL (8.5-10.1); Osmolality,Calculated 272.5 MOS/KG (273-304); Total Protein 6.4 G/DL (6.4-8.3)
[2019-09-19 23:00] LABS: Anisocytosis 1+; Eosinophils 1 % (0-10); Lymphocytes 8 % (20-55); Segmented Neutrophils 82 % (50-85); Total Cells Counted 100
[2019-09-19 23:01] LABS: Platelet Estimate Normal
[2019-09-19] MEDS ORDERED: LEVOFLOXACIN INJ 750 MG in PREMIX 1 EACH IV STA (23:21)
[2019-09-19] MEDS ORDERED: ACETAMINOPHEN 500 MG TABLET PO STA (23:22)
[2019-09-19] MEDS ORDERED: FUROSEMIDE 40 MG/4 ML VIAL IV STA (23:24)
[2019-09-20] MEDS ORDERED: DILTIAZEM 50 MG/10 ML VIAL IV STA (00:20)
[2019-09-20] MEDS ORDERED: NICOTINE 21 MG/24 HR PATCH TRANSDERM PRN (03:48)
[2019-09-20] MEDS ORDERED: guaiFENesin/DM ER 600-30 MG TABLET PO PRN (03:48)
[2019-09-20] MEDS ORDERED: ONDANSETRON 4 MG/2 ML VIAL IV PRN (03:48)
[2019-09-20] MEDS ORDERED: diphenhydrAMINE CAP 25 MG CAPSULE PO PRN (03:48)
[2019-09-20] MEDS ORDERED: MORPHINE 4 MG/1 ML VIAL IV PRN (03:48)
[2019-09-20] MEDS ORDERED: ACETAMINOPHEN 325 MG TABLET PO PRN (03:48)
[2019-09-20] MEDS ORDERED: GLUCAGON 1 MG VIAL IM PRN (04:02)
[2019-09-20] MEDS ORDERED: DEXTROSE 10% 250 ML BAG IV PRN (04:37)
[2019-09-20] MEDS: methylPREDNISolone SOD SUC 40 MG/1 ML VIAL IV SCH ×2 (05:20→15:41)
[2019-09-20] MEDS: ALBUTEROL/IPRATROPIUM 3 ML NEB RESP TX SCH ×2 (07:29→12:03)
[2019-09-20 07:30] LABS: ABG Base Excess 4.4 MMOL/L (-2.5-2.5); ABG HCO3 28.2 MMOL/L (20-26); ABG PCO2 42.8 MM HG (35-48); ABG PO2 59.9 MM HG (80-95); ABG TCO2 25.8 MMOL/L (23-27); Allen Test Positive
[2019-09-20] MEDS: APIXABAN 5 MG TABLET PO SCH ×2 (08:02→20:42)
[2019-09-20] MEDS: AMIODARONE 200 MG TABLET PO SCH (08:02)
[2019-09-20] MEDS: INSULIN REGULAR 100 UNIT/ML SUBCUT SCH ×5 (08:02→20:43)
[2019-09-20] MEDS ORDERED: LEVALBUTEROL 0.31 MG/3 ML NEB RESP TX PRN (16:27)
[2019-09-20] MEDS: METOPROLOL TARTRATE 100 MG TABLET PO SCH (16:55)
[2019-09-20 17:38] LABS: Thyroid Stimulating Hormone 1.92 uIU/ml (0.358-3.74)
[2019-09-20 18:46] LABS: Apearance,Urine Slightly Hazy (Clear); Bacteria,Urine Moderate /HPF (Few); Bilirubin,Urine Negative (Negative); Blood, Urine Negative (Negative); Glucose,Urine (UA) 50 mg/dL (Negative); Hyaline Casts,Urine 7 /LPF (0-3); Ketones,Urine Negative (Negative); Mucus,Urine Occasional /LPF (Occasional); Nitrite,Urine Negative (Negative); Protein,Urine 100 MG/DL; RBC,Urine 2 /HPF (0-4); Squamous Epithelial Cell,Urine Occasional /HPF (0-10); Urine Color Yellow (Yellow); Urine Specific Gravity 1.026 (1.001-1.035); Urine Urobilinogen < 2.0 EU/DL (0.2-1.0); WBC,Urine 3 /HPF (0-6)
[2019-09-20] MEDS: FLUTICASONE/SALMETEROL 250-50 DISKUS 14 DOSE INH SCH (20:42)
[2019-09-20] MEDS: MAGNESIUM GLUCONATE 500 MG TABLET PO SCH (20:43)
[2019-09-20] MEDS: GABAPENTIN 300 MG CAPSULE PO SCH (20:43)
[2019-09-20] MEDS ORDERED: ATORVASTATIN 40 MG TABLET PO SCH (21:00)
[2019-09-20] MEDS ORDERED: FLUoxetine 20 MG CAPSULE PO SCH (21:00)
[2019-09-20] MEDS ORDERED: MONTELUKAST 10 MG TABLET PO SCH (21:00)
[2019-09-21] MEDS ORDERED: LEVOFLOXACIN INJ 750 MG in PREMIX 1 EACH IV SCH
[2019-09-21] MEDS: methylPREDNISolone SOD SUC 40 MG/1 ML VIAL IV SCH (04:00)
[2019-09-21] MEDS ORDERED: LEVOTHYROXINE 200 MCG TABLET PO SCH (06:30)
[2019-09-21] MEDS: INSULIN REGULAR 100 UNIT/ML SUBCUT SCH ×2 (08:49→12:16)
[2019-09-21] MEDS: GABAPENTIN 300 MG CAPSULE PO SCH (08:50)
[2019-09-21] MEDS: MAGNESIUM GLUCONATE 500 MG TABLET PO SCH (08:50)
[2019-09-21] MEDS: METOPROLOL TARTRATE 100 MG TABLET PO SCH (08:50)
[2019-09-21] MEDS: FLUTICASONE/SALMETEROL 250-50 DISKUS 14 DOSE INH SCH (08:52)
[2019-09-21] MEDS ORDERED: METOPROLOL TARTRATE 100 MG TABLET PO SCH (09:00)
[2019-09-21] MEDS ORDERED: ASCORBIC ACID 500 MG TABLET PO SCH (09:00)
[2019-09-21] MEDS ORDERED: OMEGA 3 ACID ETHYL ESTERS 1 GM CAPSULE PO SCH (09:00)
[2019-09-21] MEDS ORDERED: MULTIVITAMIN (CENTRUM) TABLET PO SCH (09:00)
[2019-09-21] MEDS ORDERED: PANTOPRAZOLE 40 MG TABLET PO SCH (09:00)
[2019-09-21] MEDS ORDERED: metFORMIN 500 MG TABLET PO SCH (09:00)
[2019-09-21] MEDS: AMIODARONE 200 MG TABLET PO SCH (09:03)
[2019-09-21] MEDS: APIXABAN 5 MG TABLET PO SCH (09:03)
[2019-09-21] MEDS ORDERED: FUROSEMIDE 40 MG/4 ML VIAL IV ONE (11:37)
[2019-09-21 11:38] VITALS: BP 116/88
== END 2019-09-21 13:18 | disposition home or self-care (01) ==
LOC: N.EDINP 21:32 → N.ED 21:32 → N.4E 09-20 02:36
PROVIDERS: ADMIT Internal Medicine; ATTEND Internal Medicine